=== PATIENT | male | born 1940 | race Caucasian/White ===

== ENCOUNTER 2021-01-09 14:54 | Inpatient (IN) ==
[2021-01-09] MEDS ORDERED: ALBUT/IPRATROP 3MG/0.5MG NEB 3 ML VIAL NEB STA (15:24)
[2021-01-09 16:04] LABS: Basophils # (auto) 0.03 K/uL (0-0.2); Basophils % (auto) 0.3 %; Eosinophils # (auto) 0.15 K/uL (0-0.5); Eosinophils % (auto) 1.7 %; Hemoglobin 15.2 g/dL (14.0-18.0); Immature Granulocytes # (auto) 0.04 K/uL (0.00-0.02); Immature Granulocytes % (auto) 0.5 %; Lymphocytes # (auto) 1.33 K/uL (1.2-3.4); Lymphocytes % (auto) 15.3 %; Mean Corpuscular Hemoglobin 32.4 pg (25-34); Mean Corpuscular Hgb Conc 33.8 g/dL (32-36); Mean Corpuscular Volume 95.9 fL (80-100); Mean Platelet Volume 9.1 fL (7.4-10.4); Monocytes # (auto) 0.49 K/uL (0.11-0.59); Monocytes % (auto) 5.6 %; Neutrophils # (auto) 6.65 K/uL (1.4-6.5); Neutrophils % (auto) 76.6 %; Platelet Count 268 K/uL (130-400); RDW Coefficient of Variation 13.5 % (11.5-14.5); RDW Standard Deviation 47.3 fL (36.4-46.3); Red Blood Count 4.69 M/uL (4.7-6.1); White Blood Count 8.69 K/uL (4.8-10.8)
[2021-01-09] MEDS ORDERED: SODIUM CHLORIDE 0.9% 1000ML 500 ML IV ONE (16:05)
[2021-01-09 16:06] LABS: Base Excess VBG 5.7 mEq/L; HCO3 VBG 33 mmol/L; Oxygen Saturation VBG < 60.0 %; PCO2 VBG 58 mmHg (38-50); PO2 VBG 22 mmHg; pH VBG 7.37 (7.36-7.41)
[2021-01-09] MEDS ORDERED: SODIUM CHLORIDE 0.9% 500 ML IV SCH (16:15)
[2021-01-09 16:22] LABS: Alanine Aminotransferase 24 U/L (12-78); Albumin Level 3.6 gm/dl (3.4-5.0); Aspartate Aminotransferase 19 U/L (15-37); BUN Creatinine Ratio 27.2 (10-20); Bilirubin Direct 0.2 mg/dl (0-0.2); Blood Urea Nitrogen 22 mg/dl (7-18); Calcium 9.6 mg/dl (8.5-10.1); Carbon Dioxide 31 mmol/L (21-32); Chloride 99 mmol/L (98-107); Creatinine Clr Calc Pharmacy 68.4 ml/min; Est GFR (African American) 96.4 ml/min; Est GFR (Non-African American) 83.2 ml/min; Glucose 111 mg/dl (70-99); Sodium 136 mmol/L (136-145)
--- NOTE | 2021-01-09 16:24 | Emergency Department Note ---
History of Present Illness General Chief Complaint: Shortness of Breath/Dyspnea Stated Complaint: SOB Time Seen by Provider: 01/09/21 15:17 History of Present Illness Provider Complaint: shortness of breath and cough Onset (ago): day(s) (2) Severity: severe Consistency/Duration: + constant Relieved By: + oxygen and + bronchodilators Exacerbated By: + coughing Context: no recent illness, no occurred during exertion, no choking/aspiration, no medication noncompliance, no allergen exposure, no recent travel and no CO exposure Known history of: COPD Associated symptoms: + cough, + wheezing and + sputum production; no chest pain, no fever, no orthopnea, no polyuria, no polydipsia, no syncope, no rash and no sense of impending doom Treatment prior to arrival: oxygen, bronchodilator and other (Solu-Medrol 125 mg) Related Data Home oxygen amount: 4 liters Home Medications Medication Instructions Recorded Confirmed Type lisinopril 10 1 tab PO QAM tab 03/31/19 01/09/21 History mg-hydrochlorothiazide 12.5 mg tablet hydrocodone 5 mg-acetaminophen 325 1 tab PO Q8H PRN tab 05/03/19 01/09/21 History mg tablet levothyroxine 125 mcg capsule 125 mcg PO QAM 08/24/19 01/09/21 History budesonide-formoterol HFA 160 2 inh INHALATION BID #1 g 05/22/20 01/09/21 Rx mcg-4.5 mcg/actuation aerosol inhaler albuterol sulfate 2 puffs INHALATION Q6H PRN 01/09/21 01/09/21 History cholecalciferol (vitamin D3) 25 mcg PO QAM 01/09/21 01/09/21 History [Vitamin D3] ipratropium-albuterol 2 puff INHALATION QID 01/09/21 01/09/21 History simvastatin 40 mg PO HS 01/09/21 01/09/21 History tiotropium bromide 2 puff INHALATION DAILY PRN 01/09/21 01/09/21 History Allergies Allergy/AdvReac Type Severity Reaction Status Date / Time amoxicillin [From Augmentin] Allergy Severe Verified 01/09/21 16:22 clavulanic acid Allergy Severe Verified 01/09/21 16:22 [From Augmentin] tetanus toxoid, adsorbed Allergy Intermediate INJECTION Unverified 01/09/21 16:22 SITE SWELLING Past Med/Surg History Medical History (Updated 01/09/21 @ 18:53 by Vinny Landaverde) Carotid arterial disease COPD (chronic obstructive pulmonary disease) Hypercholesteremia Hypertension Hypothyroidism Surgical History History of prostate surgery Status post carotid surgery left CEA Family History Family/Other Diabetes Breast cancer Hypertension Social History Smoking Status: Current every day smoker Tobacco Type: Cigarettes packs per day: 0.5; Hx Alcohol Use: No Hx Substance Use: No Preferred Language: Romansh marital status: Single Current Living Situation: Alone current occupational status: retired Feels Safe at Home: Yes Childhood Exposure to Second-Hand Smoke: Yes Dental Care, Regularly: No Physical Activity Frequency: Does not Exercise Review of Systems A total of 10 systems reviewed and were otherwise negative Physical Exam Vital Signs: Vital Signs - 24 hr 01/09/21 15:00 01/09/21 15:02 01/09/21 15:10 Temperature 36.4 C L Temperature Source Axillary Pulse Rate 104 H 98 H 104 H Pulse Rate [Apical ] Pulse Rate from Sp O2 Sensor Pulse Rhythm Regular Pulse Strength Normal Respiratory Rate 18 24 24 Respiratory Effort / Characteristics Non-Labored Sponta neous Respiratory Depth Shallow Respiratory Patter n Regular Tachypnea Blood Pressure 92/76 L 102/47 L 102/49 L Blood Pressure Kaila n 81 65 66 Blood Pressure Pos ition Lying Pulse Oximetry 94 Oxygen Delivery Me thod Nasal Cannula Oxygen Flow Rate 6 Sepsis Recent Feve r Within 48 Hours No Sepsis New/Unexpla ined Change in Men millicent Status N/A Sepsis Action Take n by Nursing No Action Required 01/09/21 15:31 01/09/21 15:40 01/09/21 15:46 Temperature Temperature Source Pulse Rate 95 H 102 H Pulse Rate [Apical ] 96 H Pulse Rate from Sp O2 Sensor Pulse Rhythm Regular Pulse Strength Respiratory Rate 21 24 16 Respiratory Effort / Characteristics Non-Labored Sponta neous Respiratory Depth Respiratory Patter n Blood Pressure 80/52 L Blood Pressure Kaila n 61 Blood Pressure Pos ition Pulse Oximetry 98 98 Oxygen Delivery Me thod Nasal Cannula Nasal Cannula Oxygen Flow Rate 6 6 Sepsis Recent Feve r Within 48 Hours Sepsis New/Unexpla ined Change in Men millicent Status Sepsis Action Take n by Nursing 01/09/21 16:00 01/09/21 16:01 01/09/21 16:15 Temperature Temperature Source Pulse Rate 100 H 99 H 89 Pulse Rate [Apical ] Pulse Rate from Sp O2 Sensor 82 88 89 Pulse Rhythm Pulse Strength Respiratory Rate 18 22 24 Respiratory Effort / Characteristics Respiratory Depth Respiratory Patter n Blood Pressure 80/46 L 97/73 L Blood Pressure Kaila n 57 81 Blood Pressure Pos ition Pulse Oximetry 94 98 100 Oxygen Delivery Me thod Oxygen Flow Rate Sepsis Recent Feve r Within 48 Hours Sepsis New/Unexpla ined Change in Men millicent Status Sepsis Action Take n by Nursing 01/09/21 16:30 01/09/21 16:48 01/09/21 17:00 Temperature Temperature Source Pulse Rate 99 H 103 H 95 H Pulse Rate [Apical ] Pulse Rate from Sp O2 Sensor 94 H 90 91 H Pulse Rhythm Pulse Strength Respiratory Rate 19 21 24 Respiratory Effort / Characteristics Respiratory Depth Respiratory Patter n Blood Pressure 92/64 L 92/67 L 115/73 Blood Pressure Kaila n 73 75 87 Blood Pressure Pos ition Pulse Oximetry 91 93 100 Oxygen Delivery Me thod Oxygen Flow Rate Sepsis Recent Feve r Within 48 Hours Sepsis New/Unexpla ined Change in Men millicent Status Sepsis Action Take n by Nursing 01/09/21 17:15 01/09/21 17:26 01/09/21 17:28 Temperature Temperature Source Pulse Rate 111 H 110 H Pulse Rate [Apical ] Pulse Rate from Sp O2 Sensor 111 H 108 H Pulse Rhythm Pulse Strength Respiratory Rate 36 H 33 H Respiratory Effort / Characteristics Spontaneous SOB on Exertion Respiratory Depth Respiratory Patter n Tachypnea Blood Pressure 199/115 H 191/93 H Blood Pressure Kaila n 143 125 Blood Pressure Pos ition Pulse Oximetry 98 99 Oxygen Delivery Me thod Nasal Cannula Nasal Cannula Oxygen Flow Rate 4 4 Sepsis Recent Feve r Within 48 Hours Sepsis New/Unexpla ined Change in Men millicent Status Sepsis Action Take n by Nursing 01/09/21 17:31 01/09/21 17:45 01/09/21 18:00 Temperature Temperature Source Pulse Rate 102 H 105 H 101 H Pulse Rate [Apical ] Pulse Rate from Sp O2 Sensor 103 H 97 H 89 Pulse Rhythm Pulse Strength Respiratory Rate 27 H 24 20 Respiratory Effort / Characteristics Respiratory Depth Respiratory Patter n Blood Pressure 189/93 H 153/93 H 169/79 H Blood Pressure Kaila n 125 113 109 Blood Pressure Pos ition Pulse Oximetry 99 99 100 Oxygen Delivery Me thod Nasal Cannula Nasal Cannula Nasal Cannula Oxygen Flow Rate 4 4 4 Sepsis Recent Feve r Within 48 Hours Sepsis New/Unexpla ined Change in Men millicent Status Sepsis Action Take n by Nursing 01/09/21 18:16 01/09/21 18:31 01/09/21 18:45 Temperature Temperature Source Pulse Rate 81 95 H 103 H Pulse Rate [Apical ] Pulse Rate from Sp O2 Sensor 89 79 96 H Pulse Rhythm Pulse Strength Respiratory Rate 22 23 23 Respiratory Effort / Characteristics Respiratory Depth Respiratory Patter n Blood Pressure 131/76 128/73 123/75 Blood Pressure Kaila n 94 91 91 Blood Pressure Pos ition Pulse Oximetry 98 96 83 L Oxygen Delivery Me thod Nasal Cannula Nasal Cannula Oxygen Flow Rate 4 4 Sepsis Recent Feve r Within 48 Hours Sepsis New/Unexpla ined Change in Men millicent Status Sepsis Action Take n by Nursing Physical Exam: Physical Exam HENT: Exam performed. - Head: Normocephalic and atraumatic. - Right Ear: External ear normal. No mastoid tenderness. - Left Ear: External ear normal. No mastoid tenderness. - Mouth/Throat: The oropharynx is clear and moist. No trismus in the jaw. No dental abscesses or uvula swelling. No oropharyngeal exudate or tonsillar abscesses. EYES: Conjunctivae and EOM are normal. Pupils are equal, round, and reactive to light. Right eye exhibits no discharge. Left eye exhibits no discharge. No scleral icterus. NECK: Normal range of motion. Neck supple. No JVD present. No spinous process tenderness present. No carotid bruit present. No rigidity. No tracheal deviation and normal range of motion present. No Brudzinski's sign and no Kernig's sign noted. CV: Normal rate, regular rhythm, normal heart sounds and intact distal pulses. There is no peripheral edema. Palpable radial pulses bue. PULM/CHEST: Diminished breath sounds bilaterally. - Chest Wall: He exhibits no tenderness. ABD: The abdomen is soft. Bowel sounds are normal. He has no distension. No mass is present. There is no tenderness. There is no rebound, no guarding, no Barton's sign and no tenderness at McBurney's point. Rovsig negative. MUSC/SKEL: Normal range of motion. There is no peripheral edema, tenderness or deformity. LYMPH: No cervical adenopathy. NEURO: He is alert and oriented to person, place, and time. He has normal strength. No cranial nerve deficit or sensory deficit. Coordination and gait nor mal. GCS eye subscore is 4. GCS verbal subscore is 5. GCS motor subscore is 6. Cerebellar tests wnl. SKIN: Skin is warm and dry. He is not diaphoretic. PSYCH: He has a normal mood and affect. Behavior is normal. Judgment and thought content normal. Course Course 1517: The patient was evaluated in room A12. A complete history and physical exam was performed Cardiac monitoring: An order was placed for continuous cardiac monitoring. The monitor shows a rate of 100 with sinus rhythm 1615: Patient hypotensive. Will give IV fluids and reassess. Patient states he feels better after DuoNeb treatment. 1720: Vital signs stable status post IV fluid bolus. Patient's breathing is better with DuoNeb treatments. Labs within normal limits and x-ray shows emphysema. Patient will be admitted for COPD exacerbation. [facility] hospitalist Dr. Shah notified. Administered Medications Sodium Chloride (Nss) 500 mls @ 125 mls/hr IV .Q4H JACQUELINE Stop: 02/08/21 16:14 Last Infusion: 01/09/21 17:28 Dose: 0 mls/hr Documented by: [id number] Admin: 01/09/21 16:11 Dose: 125 mls/hr Documented by: [id number] Discontinued Medications Albuterol (Albut/Ipratrop 3mg/0.5mg Neb 3 Ml Vial) 3 ml NEB NOW STA Stop: 01/09/21 15:25 Last Admin: 01/09/21 15:45 Dose: 3 ml Documented by: [id number] Sodium Chloride (Nss 1000ml) 500 mls @ 999 mls/hr IV .Q31M ONE Stop: 01/09/21 16:35 Last Infusion: 01/09/21 17:28 Dose: 0 mls/hr Documented by: [id number] Admin: 01/09/21 16:11 Dose: 999 mls/hr Documented by: [id number] Medical Decision Making Laboratory Data Result diagrams: 01/09/21 15:56 01/09/21 15:56 Lab Results 01/09/21 01/09/21 01/09/21 Range/Units 15:56 15:56 15:56 WBC 8.69 (4.8-10.8) K/uL RBC 4.69 L (4.7-6.1) M/uL Hgb 15.2 (14.0-18.0) g/dL Hct 45.0 (42-52) % MCV 95.9 (80-100) fL MCH 32.4 (25-34) pg MCHC 33.8 (32-36) g/dL RDW Std Deviation 47.3 H (36.4-46.3) fL RDW Coeff of Scott 13.5 (11.5-14.5) % Plt Count 268 (130-400) K/uL MPV 9.1 (7.4-10.4) fL Immature Gran % (Auto) 0.5 % Neut % (Auto) 76.6 % Lymph % (Auto) 15.3 % Burnet % (Auto) 5.6 % Eos % (Auto) 1.7 % Baso % (Auto) 0.3 % Neut # (Auto) 6.65 H (1.4-6.5) K/uL Lymph # (Auto) 1.33 (1.2-3.4) K/uL Burnet # (Auto) 0.49 (0.11-0.59) K/uL Eos # (Auto) 0.15 (0-0.5) K/uL Baso # (Auto) 0.03 (0-0.2) K/uL Immature Gran # (Auto) 0.04 H (0.00-0.02) K/uL PT 9.7 (9.0-12.0) Seconds INR 1.0 (0.9-1.1) APTT 25.4 (21.0-31.0) Seconds PTT Ratio 1.0 VBG pH (7.36-7.41) VBG pCO2 (38-50) mmHg VBG pO2 mmHg VBG HCO3 mmol/L VBG O2 Saturation % VBG Base Excess mEq/L Barometric Pressure mm/Hg Sodium 136 (136-145) mmol/L Potassium 4.0 (3.5-5.1) mmol/L Chloride 99 (98-107) mmol/L Carbon Dioxide 31 (21-32) mmol/L Anion Gap 6.0 (3-11) BUN 22 H (7-18) mg/dl Creatinine 0.80 (0.6-1.4) mg/dl Est Cr Clr Drug Dosing 68.4 ml/min Est GFR ( Amer) 96.4 ml/min Est GFR (Non-Af Amer) 83.2 ml/min BUN/Creatinine Ratio 27.2 H (10-20) Glucose 111 H (70-99) mg/dl Calcium 9.6 (8.5-10.1) mg/dl Total Bilirubin 0.5 (0.2-1) mg/dl Direct Bilirubin 0.2 (0-0.2) mg/dl AST 19 (15-37) U/L ALT 24 (12-78) U/L Alkaline Phosphatase 80 (45-117) U/L Troponin I < 0.015 (0-0.045) ng/ml NT-Pro-B Natriuret Pep 41 (0-1800) pg/ml Total Protein 7.0 (6.4-8.2) gm/dl Albumin 3.6 (3.4-5.0) gm/dl Lipase (73-393) U/L COVID-19 Eval Order SARS-CoV-2 (PCR) (Negative) 01/09/21 01/09/21 01/09/21 Range/Units 15:56 15:56 16:15 WBC (4.8-10.8) K/uL RBC (4.7-6.1) M/uL Hgb (14.0-18.0) g/dL Hct (42-52) % MCV (80-100) fL MCH (25-34) pg MCHC (32-36) g/dL RDW Std Deviation (36.4-46.3) fL RDW Coeff of Scott (11.5-14.5) % Plt Count (130-400) K/uL MPV (7.4-10.4) fL Immature Gran % (Auto) % Neut % (Auto) % Lymph % (Auto) % Burnet % (Auto) % Eos % (Auto) % Baso % (Auto) % Neut # (Auto) (1.4-6.5) K/uL Lymph # (Auto) (1.2-3.4) K/uL Burnet # (Auto) (0.11-0.59) K/uL Eos # (Auto) (0-0.5) K/uL Baso # (Auto) (0-0.2) K/uL Immature Gran # (Auto) (0.00-0.02) K/uL PT (9.0-12.0) Seconds INR (0.9-1.1) APTT (21.0-31.0) Seconds PTT Ratio VBG pH 7.37 (7.36-7.41) VBG pCO2 58 H (38-50) mmHg VBG pO2 22 mmHg VBG HCO3 33 mmol/L VBG O2 Saturation < 60.0 % VBG Base Excess 5.7 mEq/L Barometric Pressure 730.7 mm/Hg Sodium (136-145) mmol/L Potassium (3.5-5.1) mmol/L Chloride (98-107) mmol/L Carbon Dioxide (21-32) mmol/L Anion Gap (3-11) BUN (7-18) mg/dl Creatinine (0.6-1.4) mg/dl Est Cr Clr Drug Dosing ml/min Est GFR ( Amer) ml/min Est GFR (Non-Af Amer) ml/min BUN/Creatinine Ratio (10-20) Glucose (70-99) mg/dl Calcium (8.5-10.1) mg/dl Total Bilirubin (0.2-1) mg/dl Direct Bilirubin (0-0.2) mg/dl AST (15-37) U/L ALT (12-78) U/L Alkaline Phosphatase (45-117) U/L Troponin I (0-0.045) ng/ml NT-Pro-B Natriuret Pep (0-1800) pg/ml Total Protein (6.4-8.2) gm/dl Albumin (3.4-5.0) gm/dl Lipase 62 L (73-393) U/L COVID-19 Eval Order Covid19 at [facility] SARS-CoV-2 (PCR) (Negative) 01/09/21 Range/Units 16:15 WBC (4.8-10.8) K/uL RBC (4.7-6.1) M/uL Hgb (14.0-18.0) g/dL Hct (42-52) % MCV (80-100) fL MCH (25-34) pg MCHC (32-36) g/dL RDW Std Deviation (36.4-46.3) fL RDW Coeff of Scott (11.5-14.5) % Plt Count (130-400) K/uL MPV (7.4-10.4) fL Immature Gran % (Auto) % Neut % (Auto) % Lymph % (Auto) % Burnet % (Auto) % Eos % (Auto) % Baso % (Auto) % Neut # (Auto) (1.4-6.5) K/uL Lymph # (Auto) (1.2-3.4) K/uL Burnet # (Auto) (0.11-0.59) K/uL Eos # (Auto) (0-0.5) K/uL Baso # (Auto) (0-0.2) K/uL Immature Gran # (Auto) (0.00-0.02) K/uL PT (9.0-12.0) Seconds INR (0.9-1.1) APTT (21.0-31.0) Seconds PTT Ratio VBG pH (7.36-7.41) VBG pCO2 (38-50) mmHg VBG pO2 mmHg VBG HCO3 mmol/L VBG O2 Saturation % VBG Base Excess mEq/L Barometric Pressure mm/Hg Sodium (136-145) mmol/L Potassium (3.5-5.1) mmol/L Chloride (98-107) mmol/L Carbon Dioxide (21-32) mmol/L Anion Gap (3-11) BUN (7-18) mg/dl Creatinine (0.6-1.4) mg/dl Est Cr Clr Drug Dosing ml/min Est GFR ( Amer) ml/min Est GFR (Non-Af Amer) ml/min BUN/Creatinine Ratio (10-20) Glucose (70-99) mg/dl Calcium (8.5-10.1) mg/dl Total Bilirubin (0.2-1) mg/dl Direct Bilirubin (0-0.2) mg/dl AST (15-37) U/L ALT (12-78) U/L Alkaline Phosphatase (45-117) U/L Troponin I (0-0.045) ng/ml NT-Pro-B Natriuret Pep (0-1800) pg/ml Total Protein (6.4-8.2) gm/dl Albumin (3.4-5.0) gm/dl Lipase (73-393) U/L COVID-19 Eval Order SARS-CoV-2 (PCR) NEGATIVE (Negative) Imaging Data Radiologist's Impression: Chest X-Ray 01/09/21 15:24 SINGLE VIEW CHEST CLINICAL HISTORY: Dyspnea. FINDINGS: 2 AP, portable, upright chest radiographs are obtained. No prior studies are available for comparison at the time of dictation. The examination is degraded by portable technique and patient rotation. The heart is top normal for projection noting advanced atherosclerotic calcification of the thoracic aorta. Advanced emphysema and chronic interstitial thickening is similar to previous. Foci of parenchymal scarring are scattered throughout both lungs. No airspace consolidation or large pleural effusion is identified. No pneumothorax is seen. The skeletal structures are osteopenic. The bony thorax is grossly intact. There is advanced atherosclerotic calcification of the right carotid bulb. IMPRESSION: Advanced emphysematous change with no acute cardiopulmonary abnormality. ACT 112: Negative or not required by law. Electronically signed by: Carlin Zapata M.D. 01/09/2021 4:42 PM ECG Data Interpretation: Sinus rhythm with a rate of 98. [place] 204 QRS [address] elevation or ST depression. First-degree AV block present. Peaked T waves in lead V3 V4. [facility] Narrative 1517: The patient was evaluated in room A12. A complete history and physical exam was performed Cardiac monitoring: An order was placed for continuous cardiac monitoring. The monitor shows a rate of 100 with sinus rhythm 1615: Patient hypotensive. Will give IV fluids and reassess. Patient states he feels better after DuoNeb treatment. 1720: Vital signs stable status post IV fluid bolus. Patient's breathing is better with DuoNeb treatments. Labs within normal limits and x-ray shows emphysema. Patient will be admitted for COPD exacerbation. [facility] hospitalist Dr. Shah notified. Impression & Plan Acute exacerbation of chronic obstructive airways disease Discharge Plan Visit Data Chief Complaint: Shortness of Breath/Dyspnea Stated Complaint: SOB ED Provider: Vinny Landaverde Discharge Problem: Acute exacerbation of chronic obstructive airways disease Patient Disposition: Being Evaluated by Hospitalist Forms Stand Alone Forms: My [facility] Prescriptions Prescriptions: No Action budesonide-formoterol 160-4.5 mcg/actuation HFA aerosol inhaler 2 inh inhalation BID Qty: 1 RF: 5 lisinopril-hydrochlorothiazide 10-12.5 mg tablet 1 tab PO QAM RF: 0 hydrocodone-acetaminophen 5-325 mg tablet 1 tab PO Q8H PRN (Reason: pain) RF: 0 levothyroxine 125 mcg capsule 125 mcg PO QAM RF: 0 simvastatin 80 mg Tablet 40 mg PO HS RF: 0 cholecalciferol (vitamin D3) [Vitamin D3] 25 mcg (1,000 unit) Tablet 25 mcg PO QAM RF: 0 tiotropium bromide 2.5 mcg/actuation Mist 2 puff INHALATION DAILY PRN (Reason: COPD) RF: 0 albuterol sulfate 90 mcg/actuation HFA aerosol inhaler 2 puffs inhalation Q6H PRN (Reason: Shortness Of Breath Or Wheezing) RF: 0 ipratropium-albuterol 20-100 mcg/actuation mist 2 puff inhalation QID RF: 0 Referrals Referrals: Joseph Carrillo III, MD [Primary Care Provider] -
[2021-01-09 16:27] LABS: Alkaline Phosphatase 80 U/L (45-117); Bilirubin,Total 0.5 mg/dl (0.2-1); NT Pro B Type Natriuretic Pept 41 pg/ml (0-1800); Troponin I < 0.015 ng/ml (0-0.045)
[2021-01-09 16:40] LABS: Partial Thromboplastin Time 25.4 Seconds (21.0-31.0); Prothrombin Time 9.7 Seconds (9.0-12.0)
--- NOTE | 2021-01-09 16:43 | XRay Report ---
SINGLE VIEW CHEST CLINICAL HISTORY: Dyspnea. FINDINGS: 2 AP, portable, upright chest radiographs are obtained. No prior studies are available for comparison at the time of dictation. The examination is degraded by portable technique and patient ro tation. The heart is top normal for projection noting advanced atherosclerotic calcification of the thoracic aorta. Advanced emphysema and chronic interstitial thickening is similar to previous. Foci o f parenchymal scarring are scattered throughout both lungs. No airspace consolidation or large pleura l effusion is identified. No pneumothorax is seen. The skeletal structures are osteopenic. The bony t horax is grossly intact. There is advanced atherosclerotic calcification of the right carotid bulb. IMPRESSION: Advanced emphysematous change with no acute cardiopulmonary abnormality. ACT 112: Negative or not required by law. Electronically signed by: Carlin Zapata M.D. 01/09/2021 4:42 PM
[2021-01-09] MEDS ORDERED: ONDANSETRON INJ 2 MG/ML 2 ML VIAL IV PRN (17:48)
[2021-01-09] MEDS ORDERED: POLYETHYLENE (MIRALAX) 17 GM PACK PO PRN (17:48)
--- NOTE | 2021-01-09 18:35 | History & Physical Report ---
Date of Service January 09, 2021 Assessment & Plan (1) COPD (chronic obstructive pulmonary disease): Severe obstructive from PFT 2019 - Continue his Combivent- inh will schedule for 24 hours - Combivent nebs prn q4h in between - Continue Spiriva - Continue Symbicort - Oral prednisone 40mg qd wean down - with his minimal exacerbating symptoms don't see any role of changing his current inhalers or adding roflumilast Patient with very few exacerbations or admission- Anxiety from his dyspnea may be playing an active role with his process. Not conversationally dyspneic, no change in oxygen requirements, no change in sputum. His Co2 on VBG was 58. No acute changes on his CXR. Could consider adding low dose clonazepam for this if not too sedating (2) Hypothyroidism: Continue synthroid - TSH in morning (3) Hypercholesteremia: Care at [place] for his HTN and HLD - Continue statin (4) Hypertension: Continue lisinopril/HCTZ combo - well controlled (5) Cigarette nicotine dependence: Continue to smoke with home oxygen and severe COPD - Nicotene patch ordered - Smoking cessation education will be provided again - Patient does want to go home to smoke History of Present Illness Primary Care Provider: Joseph Carrillo MD 80 YOM continued smoker 1/2 ppd, with severe COPD, HTN, HLD, Hypothyroidism, received his COVID vaccines x2. Patient was at the [place] for a follow up appointment, where he became extremely dyspneic and was transferred to [facility]. In the EMD, the patient received 1Liter of 0.9% saline and albuterol nebulizer, with CXR. Hospitalist service was notified for admission. Upon reviewing the patients information, the patient is has severe COPD to the point that he has been having difficulty making his PCP appointments and pulmonary appointments, as most of these have been converted to virtual appointments to continue to help him with his disease. He gets dyspneic with any activity that he performs and he is on 3-4 L chronic oxygen at home, with sedentary lifestyle noted. Patient is not conversationally dyspneic however when he stops talking he starts to gasp to catch his breath and when using pursed lip breathing he calms his respirations down. Patient will be started on prednisone 40mg Daily starting today and continue his inhalers and follow his symptom control. Allergies Allergy/AdvReac Type Severity Reaction Status Date / Time amoxicillin [From Augmentin] Allergy Severe Verified 01/09/21 16:22 clavulanic acid Allergy Severe Verified 01/09/21 16:22 [From Augmentin] tetanus toxoid, adsorbed Allergy Intermediate INJECTION Unverified 01/09/21 16:22 SITE SWELLING Home Medications Medication Instructions Recorded Confirmed Type lisinopril 10 1 tab PO QAM tab 03/31/19 01/09/21 History mg-hydrochlorothiazide 12.5 mg tablet hydrocodone 5 mg-acetaminophen 325 1 tab PO Q8H PRN tab 05/03/19 01/09/21 Hi story mg tablet levothyroxine 125 mcg capsule 125 mcg PO QAM 08/24/19 01/09/21 History budesonide-formoterol HFA 160 2 inh INHALATION BID #1 g 05/22/20 01/09/21 Rx mcg-4.5 mcg/actuation aerosol inhaler albuterol sulfate 2 puffs INHALATION Q6H PRN 01/09/21 01/09/21 History cholecalciferol (vitamin D3) 25 mcg PO QAM 01/09/21 01/09/21 History [Vitamin D3] ipratropium-albuterol 2 puff INHALATION QID 01/09/21 01/09/21 History simvastatin 40 mg PO HS 01/09/21 01/09/21 History tiotropium bromide 2 puff INHALATION DAILY PRN 01/09/21 01/09/21 History Past Med/Surg History Medical History (Updated 01/09/21 @ 18:53 by Vinny Landaverde) Carotid arterial disease COPD (chronic obstructive pulmonary disease) Hypercholesteremia Hypertension Hypothyroidism Surgical History History of prostate surgery Status post carotid surgery left CEA Family History Family/Other Diabetes Breast cancer Hypertension Social History Smoking Status: Current every day smoker Tobacco Type: Cigarettes packs per day: 0.5; Cigarettes Per Day: 10; Second Hand Exposure: Yes; Do You Dip or Chew Tobacco: No; Hx Alcohol Use: No Hx Substance Use: No Preferred Language: Lebanese Communication Ability: Effective Image Scientist Required: No Beliefs That Will Affect Care: None marital status: Single Current Living Situation: Alone current occupational status: retired Other Information That Helps Us Care for You: No Feels Safe at Home: Yes Safety Concerns: Feels Safe At This Time Childhood Exposure to Second-Hand Smoke: Yes Dental Care, Regularly: No Physical Activity Frequency: Does not Exercise Assistive Devices: Oxygen - Continuous Assistive Devices Comment: left hearing aids at home Review of Systems Review of Systems: REVIEW OF SYSTEMS: Constitutional: No fever, sweats or chills Eyes: No diplopia, no worsening or blurred vision ENT: normal hearing, no trouble swallowing Respiratory: (+) dyspnea at rest or on exertion, cough, clear thick whitish brown sputum, Cardiovascular: No chest pain, tightness or palpitations Abdomen: No pain, nausea, vomiting, diarrhea or constipation Musculoskeletal: (+) knee joint pain, NO calf pain, swelling Neurologic: No weakness, numbness/tingling, or balance problems Psychiatric: No anxiety or depression Skin: No rash or itch Physical Exam Physical Exam: PHYSICAL EXAM: General: awake, alert, anxious Head: Normocephalic, atraumatic ENT: PERRL, EOMI, no pharyngeal exudate, mucous membranes moist Neuro: AAO x 3, speech clear and appropriate, strength intact bilaterally 5/5, sensation intact and equal all extremities and dermatomes, no pronator drift Chest: equal rise and fall of the chest, with accessory muscle use, no heaves or thrills, expiratory wheeze bilaterally diminished in the bases, on 3lNC Cardiac: Regular rate and rhythm, telemetry reviewed- sinus tach, skin warm dry, cap refill <3 seconds, peripheral pulses +2 no JVD, no murmur, no edema GI: NABS x 4 quadrants, soft, nontender to palpation, no rebound, guarding or tenderness : Spontaneously voiding, no pain, no CVA tenderness, Extremities: Normal inspection, no peripheral edema or erythema, calfs nontender to palpation Psych: Normal mood and affect Skin: no rash or erythema Results & Data Results & Data ([facility]) Vital Signs (Past 12 Hours) Vital Signs Temp Pulse Pulse Resp BP Pulse Ox 01/09/21 17:45 105 H 24 153/93 H 99 01/09/21 17:31 102 H 27 H 189/93 H 99 01/09/21 17:28 110 H 33 H 191/93 H 99 01/09/21 17:26 111 H 36 H 199/115 H 98 01/09/21 17:00 95 H 24 115/73 100 01/09/21 16:48 103 H 21 92/67 L 93 01/09/21 16:30 99 H 19 92/64 L 91 01/09/21 16:15 89 24 97/73 L 100 01/09/21 16:01 99 H 22 80/46 L 98 01/09/21 16:00 100 H 18 94 01/09/21 15:46 96 H 16 98 01/09/21 15:40 102 H 24 98 01/09/21 15:31 95 H 21 80/52 L 01/09/21 15:10 36.4 C L 104 H 24 102/49 L 94 01/09/21 15:02 98 H 24 102/47 L 01/09/21 15:00 104 H 18 92/76 L Laboratory Results Abnormal lab results 01/09/21 01/09/21 01/09/21 Range/Units 15:56 15:56 15:56 RBC 4.69 L (4.7-6.1) M/uL RDW Std Deviation 47.3 H (36.4-46.3) fL Neut # (Auto) 6.65 H (1.4-6.5) K/uL Immature Gran # (Auto) 0.04 H (0.00-0.02) K/uL VBG pCO2 (38-50) mmHg BUN 22 H (7-18) mg/dl BUN/Creatinine Ratio 27.2 H (10-20) Glucose 111 H (70-99) mg/dl Lipase 62 L (73-393) U/L 01/09/21 Range/Units 15:56 RBC (4.7-6.1) M/uL RDW Std Deviation (36.4-46.3) fL Neut # (Auto) (1.4-6.5) K/uL Immature Gran # (Auto) (0.00-0.02) K/uL VBG pCO2 58 H (38-50) mmHg BUN (7-18) mg/dl BUN/Creatinine Ratio (10-20) Glucose (70-99) mg/dl Lipase (73-393) U/L Diagnostic Findings Chest X-Ray 01/09/21 15:24 SINGLE VIEW CHEST CLINICAL HISTORY: Dyspnea. FINDINGS: 2 AP, portable, upright chest radiographs are obtained. No prior studies are available for comparison at the time of dictation. The examination is degraded by portable technique and patient rotation. The heart is top normal for projection noting advanced atherosclerotic calcification of the thoracic aorta. Advanced emphysema and chronic interstitial thickening is similar to previous. Foci of parenchymal scarring are scattered throughout both lungs. No airspace consolidation or large pleural effusion is identified. No pneumothorax is seen. The skeletal structures are osteopenic. The bony thorax is grossly intact. There is advanced atherosclerotic calcification of the right carotid bulb. IMPRESSION: Advanced emphysematous change with no acute cardiopulmonary abnormality. Electronically signed by: Carlin Zapata M.D. 01/09/2021 4:42 PM Medications Administered Sodium Chloride (Nss) 500 mls @ 125 mls/hr IV .Q4H JACQUELINE Stop: 02/08/21 16:14 Last Infusion: 01/09/21 17:28 Dose: 0 mls/hr Documented by: [id number] Admin: 01/09/21 16:11 Dose: 125 mls/hr Documented by: [id number] Discontinued Medications Albuterol (Albut/Ipratrop 3mg/0.5mg Neb 3 Ml Vial) 3 ml NEB NOW STA Stop: 01/09/21 15:25 Last Admin: 01/09/21 15:45 Dose: 3 ml Documented by: [id number] Sodium Chloride (Nss 1000ml) 500 mls @ 999 mls/hr IV .Q31M ONE Stop: 01/09/21 16:35 Last Infusion: 01/09/21 17:28 Dose: 0 mls/hr Documented by: [id number] Admin: 01/09/21 16:11 Dose: 999 mls/hr Documented by: [id number] ECG Additional Comments: Sinus rhythm with marked sinus arrhythmia 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 rate has increased BY 37 BPM Questionable change in initial forces of Anterior leads Code Status & VTE Plan Code Status CODE: Full VTE: SCD's, Heparin 5000 subq TID VTE Prophylaxis Plan VTE Prophylaxis will be ordered: Yes Supervising Physician Co-Signing Physician Notes Attending addendum: I have physically seen this patient, have supervised the VINI's activities, and agree with the H&P unless as otherwise noted. Assessment and Plan: COPD exacerbation- Duonebs every 4 hours while awake and every 2 hours when necessary. Continue Spiriva, Symbicort Hold prednisone. IV Solu-Medrol 40 mg every 8 hours overnight Nasal cannula oxygen, target pulse ox 92% Hypothyroidism- Continue current dosing of Synthroid, recheck TSH in a.m. Hypertension- Continue lisinopril/HCTZ Hypercholesterolemia- Continue simvastatin 40 mg at bedtime Remaining orders and notations as noted PG Care Time/CCT Total # of Minutes Spent Total Time Spent with Patient: Total time spent is greater than 50% in coordination of care (as documented) at patient's floor/unit and/or counseling patient: Coding Level of Care Code 00505 Initial Inpt Care Lvl 3 Diagnoses COPD (chronic obstructive pulmonary disease) J43.8 COPD type: emphysema Emphysema type: other Hypothyroidism E03.9 Hypothyroidism type: unspecified Hypercholesteremia E78.00 Hypertension I10 Hypertension type: essential hypertension Cigarette nicotine dependence F17.219 Substance use status: unspecified nicotine-induced disorder (1) Hypothyroidism Hypothyroidism type: unspecified Qualified Code(s): E03.9 - Hypothyroidism, unspecified (2) Cigarette nicotine dependence Substance use status: unspecified nicotine-induced disorder Qualified Code(s): F17.219 - Nicotine dependence, cigarettes, with unspecified nicotine- induced disorders (3) COPD (chronic obstructive pulmonary disease) COPD type: emphysema Emphysema type: other Qualified Code(s): J43.8 - Other emphysema (4) Hypertension Hypertension type: essential hypertension Qualified Code(s): I10 - Essential (primary) hypertension
[2021-01-09] MEDS ORDERED: ALBUTEROL HFA 8 GM INHALER INH PRN (19:51)
[2021-01-09] MEDS ORDERED: ALBUT/IPRATROP 3MG/0.5MG NEB 3 ML VIAL NEB PRN (19:51)
[2021-01-09] MEDS: Ipratropium HFA Inhaler (Combivent Respimat P&T Subs) INH SCH (20:35)
[2021-01-09] MEDS: Albuterol HFA 8 GM Inhaler (Combivent Respimat P&T Subs) INH SCH (20:36)
[2021-01-09] MEDS ORDERED: IPRATROPIUM BROMIDE/ALBUTEROL respimat INH INH SCH (21:00)
[2021-01-09] MEDS: predniSONE 20 MG TAB PO SCH (21:18)
[2021-01-09] MEDS: ENOXAPARIN INJ 40 MG/0.4 ML SYR SQ SCH (21:18)
[2021-01-09] MEDS: SIMVASTATIN 40 MG TAB PO SCH (21:19)
[2021-01-09] MEDS: NICOTINE 14 MG/24 HR PATCH TD SCH (21:20)
--- NOTE | 2021-01-09 21:21 | XRay Report ---
XR chest 1V portable HISTORY: Dyspnea. COMPARISON: Chest 01/09/2021. FINDINGS: The lungs are hyperexpanded with severe emphysematous changes. No pneumothorax. No pleural effusion is. The heart is normal in size. No new focal lung consolidations to suggest a pneumonia. Th ere is mild residual thickening which is likely chronic. No evidence for pulmonary edema. Degenerativ e changes again noted within the bilateral shoulders. IMPRESSION: 1. Severe emphysema, unchanged. 2. No new focal lung consolidations to suggest pneumonia. ACT 112: Negative or not required by law. Electronically signed by: Joel Guevara M.D. 01/09/2021 9:20 PM
[2021-01-09 21:38] LABS: Influenza A virus by PCR Negative (Negative); Influenza B virus by PCR Negative (Negative)
[2021-01-10] MEDS ORDERED: LEVOTHYROXINE SODIUM 125 MCG TABLET PO SCH (06:30)
[2021-01-10 07:10] LABS: Hematocrit (blood only) 41.8 % (42-52); Hemoglobin 14.1 g/dL (14.0-18.0); Immature Granulocytes # (auto) 0.02 K/uL (0.00-0.02); Immature Granulocytes % (auto) 0.3 %; Lymphocytes # (auto) 0.74 K/uL (1.2-3.4); Lymphocytes % (auto) 12.6 %; Mean Corpuscular Hemoglobin 32.3 pg (25-34); Mean Corpuscular Hgb Conc 33.7 g/dL (32-36); Mean Corpuscular Volume 95.7 fL (80-100); Mean Platelet Volume 8.8 fL (7.4-10.4); Monocytes # (auto) 0.13 K/uL (0.11-0.59); Monocytes % (auto) 2.2 %; Neutrophils # (auto) 4.96 K/uL (1.4-6.5); Neutrophils % (auto) 84.9 %; Platelet Count 249 K/uL (130-400); RDW Coefficient of Variation 13.4 % (11.5-14.5); RDW Standard Deviation 46.5 fL (36.4-46.3); Red Blood Count 4.37 M/uL (4.7-6.1); White Blood Count 5.85 K/uL (4.8-10.8)
[2021-01-10] MEDS: Albuterol HFA 8 GM Inhaler (Combivent Respimat P&T Subs) INH SCH (07:29)
[2021-01-10] MEDS: Ipratropium HFA Inhaler (Combivent Respimat P&T Subs) INH SCH (07:29)
[2021-01-10 07:45] LABS: BUN Creatinine Ratio 36.1 (10-20); Calcium 8.9 mg/dl (8.5-10.1); Creatinine Clr Calc Pharmacy 69.7 ml/min; Est GFR (African American) 99.6 ml/min; Est GFR (Non-African American) 85.9 ml/min; Magnesium 2.4 mg/dl (1.8-2.4); Potassium 4.3 mmol/L (3.5-5.1)
--- NOTE | 2021-01-10 07:50 | Electrocardiogram Report ---
Test Reason : Blood Pressure : / mmHG Vent. 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 rate has increased BY 37 BPM No significant change Confirmed by Dereck Lee ([id number]) on 01/10/2021 7:49:53 AM Referred By: Confirmed By:Dereck Lee
[2021-01-10 07:55] LABS: Thyroid Stimulating Hormone 0.117 uIu/ml (0.300-4.500)
[2021-01-10] MEDS: FLUTICASONE/VILANTEROL 200/25MCG 14 PUFFS/INHALER INH SCH (08:05)
[2021-01-10] MEDS: CHOLECALCIFEROL 1,000 UNITS 25 MCG TAB PO SCH (08:05)
[2021-01-10] MEDS: LISINOPRIL/HCTZ 10/12.5MG TAB PO SCH (08:05)
[2021-01-10] MEDS: predniSONE 20 MG TAB PO SCH (08:06)
[2021-01-10] MEDS: NICOTINE 14 MG/24 HR PATCH TD SCH (08:06)
[2021-01-10] MEDS ORDERED: AZITHROMYCIN 250 MG TAB PO ONE (08:30)
[2021-01-10] MEDS: ALBUTEROL 0.083% NEBU SOLN 3 ML VIAL NEB SCH ×3 (08:49→19:14)
[2021-01-10] MEDS ORDERED: UMECLIDINIUM BROMIDE 62.5MCG/BLISTER 7 PUFFS/INHALER INH PRN (09:00)
[2021-01-10] MEDS ORDERED: UMECLIDINIUM BROMIDE 62.5MCG/BLISTER 7 PUFFS/INHALER INH SCH (09:00)
[2021-01-10] MEDS: UMECLIDINIUM BROMIDE 62.5MCG/BLISTER 7 PUFFS/INHALER INH SCH (09:05)
--- NOTE | 2021-01-10 13:25 | Billing Data ---
Date of Service January 10, 2021 Coding Level of Care Code 13391 Initial Inpt Care Lvl 3
--- NOTE | 2021-01-10 16:48 | Hospitalist Progress Note ---
Date of Service January 10, 2021 Assessment & Plan (1) COPD (chronic obstructive pulmonary disease): With acute COPD exacerbation Presented with tachypenea and respiratory distress Severe obstructive from PFT 2019 Now on home O2 requirement of 4LNC, no further tachypnea May be some anxiety component - Continue Spiriva - Continue Symbicort - Oral prednisone 40mg qd wean down - with his minimal exacerbating symptoms don't see any role of changing his current inhalers or adding roflumilast -make albuterol neb q6 standing Patient with very few exacerbations or admission- Anxiety from his dyspnea may be playing an active role with his process. Not conversationally dyspneic, no change in oxygen requirements, no change in sputum. His Co2 on VBG was 58. No acute changes on his CXR. Could consider adding low dose clonazepam for this if not too sedating -add on azithromycin x 5 day course for COPD exacerbation -still smoking and no desire to quit (2) Hypothyroidism: TSH low at 0.117 -decrease dose to 112 mcg -follow TSH in 6 weeks as outpt (3) Hypercholesteremia: Care at [place] for his HTN and HLD - Continue statin (4) Hypertension: Continue lisinopril/HCTZ combo - well controlled (5) Cigarette nicotine dependence: Continue to smoke with home oxygen and severe COPD - Nicotene patch ordered - Smoking cessation education will be provided again - Patient does want to go home to smoke (6) Carotid arterial disease: continue statin is not on ASA that I can see-will find out why (7) Chronic respiratory failure with hypoxia: on home O2 3-4L continue such here (8) DVT prophylaxis: Lovenox SQ Dispo-continued stay but can likely dc to home tomorrow PT/OT consults placed as pt quite unsteady on feet, however pt reports he absolutely will not go to a rehab facility Admission and Anticipated Discharge Date Admission Date: January 09, 2021 Subjective Pt feels he is back to his baseline with his breathing. He is eating and drinking. RN reports pt almost fell over with standing up today but both pt and his family at bedside don't seem worried about i t. He says he normally walks around his house and does dishes, but since he's been laying in a bed all day, he's weaker than usual. No other concerns he has. Tele with NSR, rates 70s-80s, PACs He is on his usual 4LNC Review of Systems Review of Systems: All systems reviewed & are unremarkable except as noted in HPI & below Physical Exam Constitutional: + thin; no acute distress Eyes: + anicteric sclerae Neck: trachea midline, no thyromegaly Respiratory: normal respiratory effort Auscultation: + diminished lung sounds (throughout); no crackles and no wheezes Cardiovascular: RRR, no murmur, no edema Chest (Breasts): Chest: normal inspection of chest Gastrointestinal (Abdomen): normal bowel sounds, soft, nontender, no hepatosplenomegaly Musculoskeletal: Extremities: extremities normal to inspection; no cyanosis and no clubbing Skin: no rashes, warm and dry Neurologic: moves all extremities and awake; no focal motor deficits Psychiatric: A+Ox3, euthymic affect Lymphatic: no lymphedema Results & Data Results & Data ([facility]) Vital Signs (Past 12 Hours) Vital Signs Temp Pulse Resp BP Pulse Ox 01/10/21 14:56 36.6 C 76 18 145/67 H 98 01/10/21 13:30 76 20 98 01/10/21 11:14 36.7 C 74 20 142/59 H 99 01/10/21 07:48 36.5 C 86 21 170/69 H 97 01/10/21 07:29 86 18 98 Laboratory Results 01/10/21 01/10/21 01/09/21 Range/Units 06:57 06:57 Unknown WBC 5.85 (4.8-10.8) K/uL RBC 4.37 L (4.7-6.1) M/uL Hgb 14.1 (14.0-18.0) g/dL Hct 41.8 L (42-52) % MCV 95.7 (80-100) fL MCH 32.3 (25-34) pg MCHC 33.7 (32-36) g/dL RDW Std Deviation 46.5 H (36.4-46.3) fL RDW Coeff of Scott 13.4 (11.5-14.5) % Plt Count 249 (130-400) K/uL MPV 8.8 (7.4-10.4) fL Immature Gran % (Auto) 0.3 % Neut % (Auto) 84.9 % Lymph % (Auto) 12.6 % [place] % (Auto) 2.2 % Eos % (Auto) 0.0 % Baso % (Auto) 0.0 % Neut # (Auto) 4.96 (1.4-6.5) K/uL Lymph # (Auto) 0.74 L (1.2-3.4) K/uL [place] # (Auto) 0.13 (0.11-0.59) K/uL Eos # (Auto) 0.00 (0-0.5) K/uL Baso # (Auto) 0.00 (0-0.2) K/uL Immature Gran # (Auto) 0.02 (0.00-0.02) K/uL Sodium 137 (136-145) mmol/L Potassium 4.3 (3.5-5.1) mmol/L Chloride 102 (98-107) mmol/L Carbon Dioxide 29 (21-32) mmol/L Anion Gap 6.0 (3-11) BUN 27 H (7-18) mg/dl Creatinine 0.74 (0.6-1.4) mg/dl Est Cr Clr Drug Dosing 69.7 ml/min Est GFR ( Amer) 99.6 ml/min Est GFR (Non-Af Amer) 85.9 ml/min BUN/Creatinine Ratio 36.1 H (10-20) Glucose 130 H (70-99) mg/dl Calcium 8.9 (8.5-10.1) mg/dl Magnesium 2.4 (1.8-2.4) mg/dl TSH 0.117 L (0.300-4.500) uIu/ml SARS-CoV-2 (PCR) (Negative) Influ A Molecular Assay Negative (Negative) Influ B Molecular Assay Negative (Negative) 01/09/21 Range/Units 16:15 WBC (4.8-10.8) K/uL RBC (4.7-6.1) M/uL Hgb (14.0-18.0) g/dL Hct (42-52) % MCV (80-100) fL MCH (25-34) pg MCHC (32-36) g/dL RDW Std Deviation (36.4-46.3) fL RDW Coeff of Scott (11.5-14.5) % Plt Count (130-400) K/uL MPV (7.4-10.4) fL Immature Gran % (Auto) % Neut % (Auto) % Lymph % (Auto) % [place] % (Auto) % Eos % (Auto) % Baso % (Auto) % Neut # (Auto) (1.4-6.5) K/uL Lymph # (Auto) (1.2-3.4) K/uL [place] # (Auto) (0.11-0.59) K/uL Eos # (Auto) (0-0.5) K/uL Baso # (Auto) (0-0.2) K/uL Immature Gran # (Auto) (0.00-0.02) K/uL Sodium (136-145) mmol/L Potassium (3.5-5.1) mmol/L Chloride (98-107) mmol/L Carbon Dioxide (21-32) mmol/L Anion Gap (3-11) BUN (7-18) mg/dl Creatinine (0.6-1.4) mg/dl Est Cr Clr Drug Dosing ml/min Est GFR ( Amer) ml/min Est GFR (Non-Af Amer) ml/min BUN/Creatinine Ratio (10-20) Glucose (70-99) mg/dl Calcium (8.5-10.1) mg/dl Magnesium (1.8-2.4) mg/dl TSH (0.300-4.500) uIu/ml SARS-CoV-2 (PCR) NEGATIVE (Negative) Influ A Molecular Assay (Negative) Influ B Molecular Assay (Negative) PG Care Time/CCT Total # of Minutes Spent Total Time Spent with Patient: Total time spent is greater than 50% in coordination of care (as documented) at patient's floor/unit and/or counseling patient: Coding Level of Care Code 21280 Subseq Hosp Care Lvl 2 Diagnoses COPD (chronic obstructive pulmonary disease) J43.8 COPD type: emphysema Emphysema type: other Hypothyroidism E03.9 Hypothyroidism type: unspecified Hypercholesteremia E78.00 Hypertension I10 Hypertension type: essential hypertension Cigarette nicotine dependence F17.219 Substance use status: unspecified nicotine-induced disorder Carotid arterial disease I77.9 Chronic respiratory failure with hypoxia J96.11 DVT prophylaxis Z29.9 (1) COPD (chronic obstructive pulmonary disease) COPD type: emphysema Emphysema type: other Qualified Code(s): J43.8 - Other emphysema (2) Hypothyroidism Hypothyroidism type: unspecified Qualified Code(s): E03.9 - Hypothyroidism, unspecified (3) Hypertension Hypertension type: essential hypertension Qualified Code(s): I10 - Essential (primary) hypertension (4) Cigarette nicotine dependence Substance use status: unspecified nicotine-induced disorder Qualified Code(s): F17.219 - Nicotine dependence, cigarettes, with unspecified nicotine- induced disorders
[2021-01-10] MEDS: SIMVASTATIN 40 MG TAB PO SCH (21:07)
[2021-01-10] MEDS: ENOXAPARIN INJ 40 MG/0.4 ML SYR SQ SCH (21:07)
[2021-01-11] MEDS: ALBUTEROL 0.083% NEBU SOLN 3 ML VIAL NEB SCH ×2 (01:35→07:19)
[2021-01-11] MEDS ORDERED: LEVOTHYROXINE SODIUM 112 MCG TABLET PO SCH (06:30)
[2021-01-11] MEDS ORDERED: AZITHROMYCIN 250 MG TAB PO SCH (09:00)
[2021-01-11] MEDS: FLUTICASONE/VILANTEROL 200/25MCG 14 PUFFS/INHALER INH SCH (10:09)
[2021-01-11] MEDS: LISINOPRIL/HCTZ 10/12.5MG TAB PO SCH (10:10)
[2021-01-11] MEDS: NICOTINE 14 MG/24 HR PATCH TD SCH (10:10)
[2021-01-11] MEDS: CHOLECALCIFEROL 1,000 UNITS 25 MCG TAB PO SCH (10:10)
[2021-01-11] MEDS: predniSONE 20 MG TAB PO SCH (10:11)
[2021-01-11] MEDS: UMECLIDINIUM BROMIDE 62.5MCG/BLISTER 7 PUFFS/INHALER INH SCH (10:11)
[2021-01-11] MEDS ORDERED: Nursing to Pharmacy Communication SCH (10:15)
[2021-01-11] MEDS ORDERED: EUCERIN CR 120 GM JAR EXT PRN (10:20)
[2021-01-11] MEDS ORDERED: IPRATROPIUM BROMIDE HFA INHALER INH SCH (11:00)
[2021-01-11] MEDS ORDERED: ALBUTEROL HFA 8 GM INHALER INH SCH (11:00)
--- NOTE | 2021-01-11 11:06 | Discharge Summary ---
Date of Service January 11, 2021 Admission HPI Per Admitting Provider 80 YOM continued smoker 1/2 ppd, with severe COPD, HTN, HLD, Hypothyroidism, received his COVID vaccines x2. [facility] was at [facility] for [facility] follow up [facility], where he became extremely dyspneic and was transferred to [facility]. In the EMD, the patient received 1Liter of 0.9% saline and albuterol nebulizer, with CXR. Hospitalist service was notified for admission. Upon reviewing the patients information, the patient is has severe COPD to the point that he has been having difficulty making his PCP appointments and pulmonary appointments, as most of these have been converted to virtual appointments to continue to help him with his disease. He gets dyspneic with any activity that he performs and he is on 3-4 L chronic oxygen at home, with sedentary lifestyle noted. Patient is not conversationally dyspneic however when he stops talking he starts to gasp to catch his breath and when using pursed lip breathing he calms his respirations down. Patient will be started on prednisone 40mg Daily starting today and continue his inhalers and follow his symptom control. Principal Diagnosis COPD Exacerbation Discharge Exam Constitutional + thin; no acute distress Eyes + anicteric sclerae Neck trachea midline, no thyromegaly Respiratory normal respiratory effort Auscultation: + diminished lung sounds (throughout); no crackles and no wheezes Cardiovascular RRR, no murmur, no edema Chest (Breasts) Chest: normal inspection of chest Gastrointestinal (Abdomen) normal bowel sounds, soft, nontender, no hepatosplenomegaly Musculoskeletal Extremities: extremities normal to inspection; no cyanosis and no clubbing Skin no rashes, warm and dry Neurologic moves all extremities and awake; no focal motor deficits Psychiatric A+Ox3, euthymic affect Lymphatic no lymphedema Discharge Data Allergies Allergy/AdvReac Type Severity Reaction Status Date / Time amoxicillin [From Augmentin] Allergy Severe Verified 01/09/21 16:22 clavulanic acid Allergy Severe Verified 01/09/21 16:22 [From Augmentin] tetanus toxoid, adsorbed Allergy Intermediate INJECTION Unverified 01/09/21 16:22 SITE SWELLING Consultations 01/09/21 17:21 ED Decision to Admit Stat Ordered Studies Chest X-Ray 01/09/21 15:24 SINGLE VIEW CHEST CLINICAL HISTORY: Dyspnea. FINDINGS: 2 AP, portable, upright chest radiographs are obtained. No prior studies are available for comparison at the time of dictation. The examination is degraded by portable technique and patient rotation. The heart is top normal for projection noting advanced atherosclerotic calcification of the thoracic aorta. Advanced emphysema and chronic interstitial thickening is similar to prev ious. Foci of parenchymal scarring are scattered throughout both lungs. No airspace consolidation or large pleural effusion is identified. No pneumothorax is seen. The skeletal structures are osteopenic. The bony thorax is grossly intact. There is advanced atherosclerotic calcification of the right carotid bulb. IMPRESSION: Advanced emphysematous change with no acute cardiopulmonary abnormality. ACT 112: Negative or not required by law. Electronically signed by: Carlin Zapata M.D. 01/09/2021 4:42 PM Chest X-Ray 01/09/21 19:51 XR chest 1V portable HISTORY: Dyspnea. COMPARISON: Chest 01/09/2021. FINDINGS: The lungs are hyperexpanded with severe emphysematous changes. No pneumothorax. No pleural effusion is. The heart is normal in size. No new focal lung consolidations to suggest a pneumonia. There is mild residual thickening which is likely chronic. No evidence for pulmonary edema. Degenerative changes again noted within the bilateral shoulders. IMPRESSION: 1. Severe emphysema, unchanged. 2. No new focal lung consolidations to suggest pneumonia. ACT 112: Negative or not required by law. Electronically signed by: Joel Guevara M.D. 01/09/2021 9:20 PM Hospital Course (1) COPD (chronic obstructive pulmonary disease): With acute COPD exacerbation Presented with tachypenea and respiratory distress Severe obstructive from PFT 2019 Now on home O2 requirement of 4LNC, no further tachypnea May be some anxiety component Much improved, back to baseline - Continue Spiriva - Continue Symbicort - Oral prednisone 40mg qd wean down and titrate off over the next 10 days - with his minimal exacerbating symptoms don't see any role of changing his cur rent inhalers or adding roflumilast continue albuterol prn Patient with very few exacerbations or admission- Anxiety from his dyspnea may be playing an active role with his process. Not conversationally dyspneic, no change in oxygen requirements, no change in sputum. His Co2 on VBG was 58. No acute changes on his CXR. Could consider adding low dose clonazepam for this if not too sedating-defer to PCP for this fci -finish out azithromycin x 5 day course for COPD exacerbation -still smoking and no desire to quit (2) Hypothyroidism: TSH low at 0.117 -decreased dose to 112 mcg -follow TSH in 6 weeks as outpt (3) Hypercholesteremia: Care at [facility] for his HTN and HLD - Continue statin (4) Hypertension: Continue lisinopril/HCTZ combo - well controlled (5) Cigarette nicotine dependence: Continue to smoke with home oxygen and severe COPD - Nicotene patch ordered - Smoking cessation education will be provided again - Patient does want to go home to smoke (6) Carotid arterial disease: continue statin is not on ASA that I can see-defer to PCP (7) Chronic respiratory failure with hypoxia: on home O2 3-4L continue such (8) DVT prophylaxis: Lovenox SQ Dispo-dc to home PT/OT consults placed as pt quite unsteady on feet, however pt reports he absolutely will not go to a rehab facility Total Time Total Time Spent Total Time Spent (In Minutes): 35 min Total Time Includes: Examination of the Patient, Discharge Planning and Medication Reconciliation Discharge Plan Discharge Items Patient Disposition: Home - Self-Care Reason For Visit: COPD Discharge Diagnosis: COPD Exacerbation Condition on Discharge: Fair Activity: Resume your previous activity Non-emergency contact: Primary Care Provider Call non-emergency contact if: you have any medication questions and your symptoms worsen Follow-up/Referrals: Joseph Carrillo III, MD [Primary Care Provider] - (Dr. Carrillo is unavailable.) Stephany Nassar PA-C [Physician Computational Sciences Professor] - 01/21/21 11:30 am (Dr. Carrillo is unavailable. Follow up appointment scheduled with Stephany Nassar PA-C on Wednesday01/21/21 at 11:30 am.) Diet: Heart Healthy Addtl Attending Provider Instructions: Please finish out the course of prednisone over 10 days and 3 more days of the antibiotic, azithromycin. Your thyroid medication was decreased in dose as your thyroid function was overactive. Follow up with your PCP within 1 week. Pending Studies at Discharge: No Stand-Alone Forms: My [employer], Smoking Cessation Medications and DC Order Prescriptions: New prednisone 20 mg Tablet 40 mg PO QAM Qty: 20 RF: 0 levothyroxine [Synthroid] 112 mcg Tablet 112 mcg PO DAILYBB Qty: 30 RF: 0 Continued budesonide-formoterol 160-4.5 mcg/actuation HFA aerosol inhaler 2 inh inhalation BID Qty: 1 RF: 5 lisinopril-hydrochlorothiazide 10-12.5 mg tablet 1 tab PO QAM RF: 0 hydrocodone-acetaminophen 5-325 mg tablet 1 tab PO Q8H PRN (Reason: pain) RF: 0 simvastatin 80 mg Tablet 40 mg PO HS RF: 0 cholecalciferol (vitamin D3) [Vitamin D3] 25 mcg (1,000 unit) Tablet 25 mcg PO QAM RF: 0 tiotropium bromide 2.5 mcg/actuation Mist 2 puff INHALATION DAILY PRN (Reason: COPD) RF: 0 albuterol sulfate 90 mcg/actuation HFA aerosol inhaler 2 puffs inhalation Q6H PRN (Reason: Shortness Of Breath Or Wheezing) RF: 0 ipratropium-albuterol 20-100 mcg/actuation mist 2 puff inhalation QID RF: 0 Discontinued levothyroxine 125 mcg capsule 125 mcg PO QAM RF: 0 Discharge Orders: Discharge Order (Routine); Ordered 01/11/21 Ordered By: Petrona Ordonez Admission Data Admit Date/Time: 01/09/21 17:48 Attending Provider: Petrona Ordonez Admit Provider: Arjun Meyer Primary Care Provider: Joseph Carrillo III Other Providers: Arjun Meyer ; [facility] Other Interventions: Discharge Summary Assessment (RN) Last Done: 01/11/21 12:18 Coding Level of Care Code D/C Day Management >30 mins Diagnoses COPD (chronic obstructive pulmonary disease) J43.8 COPD type: emphysema Emphysema type: other Hypothyroidism E03.9 Hypothyroidism type: unspecified Hypercholesteremia E78.00 Hypertension I10 Hypertension type: essential hypertension Cigarette nicotine dependence F17.219 Substance use status: unspecified nicotine-induced disorder Carotid arterial disease I77.9 Chronic respiratory failure with hypoxia J96.11 DVT prophylaxis Z29.9
--- NOTE | 2021-01-20 14:19 | Coding Query ---
To promote full compliance with coding requirements relating to patient care, provider participation is requested in all cases of private tutor uncertainty. Please assist us with the question(s) below: Coding Question(s): The diagnosis(es) below was documented in the Addendum on the 01/10/21 Progress Note, then subsequently fell off all further documentation. Please indicate if it is still a possible diagnosis or ruled out. Physician's Response(s): ACUTE AND CHRONIC RESPIRATORY FAILURE - please specify regarding the ACUTE RESPIRATORY FAILURE diagnosis. ( x ) Diagnosed and POA ( ) Diagnosed and not POA ( ) Ruled out ( ) Other (please specify) MTDD
== END 2021-01-11 13:00 | disposition home or self-care (01) | DRG 190 ==
LOC: ED 14:54 → SUATTDRO 17:48 → 2S 17:48

== ENCOUNTER 2021-09-16 09:57 | Inpatient (IN) ==
[~2021-09-16 09:57] MED LIST: SODIUM CHLORIDE 0.9% 1000ML 1,000 ML IV SCH; VANCOMYCIN CONSULT ACTIVE PRN; VANCOMYCIN HCL 2,500 MG in SODIUM CHLORIDE 0.9% 500 ML IV STA; levoFLOXacin/D5W 750 MG/150 ML BAG IV STA
--- NOTE | 2021-09-16 10:11 | Emergency Department Note ---
History of Present Illness General Chief complaint: Altered Mental Status Stated complaint: CONFUSION, AMS, FALLS, HYPOTENSION History of Present Illness 81-year-old male presents to the ED with a chief complaint of decreased alertness as well as falls. The patient also reports generalized pain and some shortness of breath. He is a poor historian. He has difficulty communicating. He does answer basic questions yes or no although it is somewhat difficult to understand. The patient reportedly lives alone. He was reportedly found on the floor yesterday by a neighbor and put back into bed. He was found again on the floor today. He is reportedly fallen or been on the floor possibly for the past 3 days intermittently. EMS arrived and evaluated the patient. They found his initial blood pressure be 70/26 and 62/32. His respiratory rate was 40. His heart rate was 80 and his oxygen saturations were 96% on 6 L. He does use 4 L of oxygen at home for COPD. The patient was given 800 cc normal saline bolus and his blood pressure improved. Home Medications Medication Instructions Recorded Confirmed Type lisinopril 10 1 tab PO QAM tab 03/31/19 01/09/21 History mg-hydrochlorothiazide 12.5 mg tablet hydrocodone 5 mg-acetaminophen 325 1 tab PO Q8H PRN tab 05/03/19 01/09/21 History mg tablet cholecalciferol (vitamin D3) 25 25 mcg PO QAM 01/09/21 01/09/21 History mcg (1,000 unit) tablet (Vitamin D3) simvastatin 80 mg tablet 40 mg PO HS 01/09/21 01/09/21 History tiotropium bromide 2.5 2 puff INHALATION DAILY PRN 01/09/21 01/09/21 History mcg/actuation mist for inhalation levothyroxine 112 mcg tablet 112 mcg PO DAILYBB #30 tab 01/11/21 Rx (Synthroid) albuterol sulfate 90 mcg/actuation 2 puff INHALATION Q6H PRN #18 g 08/28/21 08/28/21 Rx aerosol inhaler ipratropium 20 mcg-albuterol 100 See Rx Instructions .ROUTE 08/28/21 08/28/21 Rx mcg/actuation mist for inhalation .COMPLEX #12 milliliter (Combivent Respimat) budesonide-formoterol HFA 160 2 inh INHALATION BID #1 g 09/08/21 Rx mcg-4.5 mcg/actuation aerosol inhaler Allergies Allergy/AdvReac Type Severity Reaction Status Date / Time amoxicillin [From Augmentin] Allergy Severe Verified 01/09/21 16:22 clavulanic acid Allergy Severe Verified 01/09/21 16:22 [From Augmentin] tetanus toxoid, adsorbed Allergy Intermediate INJECTION Unverified 01/09/21 16:22 SITE SWELLING Past Med/Surg History Medical History Carotid arterial disease Chronic respiratory failure with hypoxia COPD (chronic obstructive pulmonary disease) External hemorrhoid Hypercholesteremia Hypertension Hypothyroidism Rectal bleeding Surgical History History of prostate surgery Status post carotid surgery left CEA Family History Family/Other Diabetes Breast cancer Hypertension Social History Smoking Status: Unknown if ever smoked Tobacco Type: Cigarettes packs per day: 0.5; Cigarettes Per Day: 10; Second Hand Exposure: Yes; Hx Alcohol Use: No Hx Substance Use: No Preferred Language: Micronesian Communication Ability: 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 Beliefs That Will Affect Care: None marital status: Single Current Living Situation: Alone current occupational status: retired Feels Safe at Home: Yes Childhood Exposure to Second-Hand Smoke: Yes Dental Care, Regularly: No Physical Activity Frequency: Does not Exercise Assistive Devices: Walker Review of Systems Unobtainable due to cognitive status Physical Exam Vital Signs Vital Signs - 24 hr 09/16/21 10:04 09/16/21 11:00 09/16/21 11:47 Temperature 34.8 C L Temperature Source Cuevas Cath ( Temp Sensing) Pulse Rate 75 Pulse Rate [Left Finger] 74 Pulse Rate from SpO2 Sensor Pulse Rhythm Regular Pulse Strength Normal Respiratory Rate 22 22 Respiratory Effort / Characteristics Non-Labored Spontaneous Spontaneous Respiratory Depth Normal Respiratory Pattern Regular Blood Pressure 153/41 H Blood Pressure Mean 78 Blood Pressure Position Lying Pulse Oximetry 100 Oxygen Delivery Method Nasal Cannula Nasal Cannula Oxygen Flow Rate 4 4 Sepsis Recent Fever Within 48 Hours No Sepsis New/Unexplained Change in Mental Status N/A Sepsis Action Taken by Nursing No Action Required 09/16/21 11:49 09/16/21 11:55 09/16/21 12:00 Temperature 34.7 C L 34.7 C L 34.7 C L Temperature Source Pulse Rate 78 76 75 Pulse Rate [Left Finger] Pulse Rate from SpO2 Sensor 74 Pulse Rhythm Pulse Strength Respiratory Rate 24 26 H 35 H Respiratory Effort / Characteristics Respiratory Depth Respiratory Pattern Blood Pressure 127/54 L 140/47 L 123/55 L Blood Pressure Mean 78 78 77 Blood Pressure Position Pulse Oximetry 100 99 99 Oxygen Delivery Method Nebulizer Nasal Cannula Nasal Cannula Oxygen Flow Rate 7 4 4 Sepsis Recent Fever Within 48 Hours Sepsis New/Unexplained Change in Mental Status Sepsis Action Taken by Nursing 09/16/21 12:05 09/16/21 12:34 09/16/21 12:35 Temperature 34.7 C L 34.8 C L 34.8 C L Temperature Source Pulse Rate Pulse Rate [Left Finger] Pulse Rate from SpO2 Sensor Pulse Rhythm Pulse Strength Respiratory Rate 26 H 24 24 Respiratory Effort / Characteristics Respiratory Depth Respiratory Pattern Blood Pressure 133/50 L 142/43 H 139/36 L Blood Pressure Mean 77 76 70 Blood Pressure Position Pulse Oximetry 100 100 100 Oxygen Delivery Method Nasal Cannula Nasal Cannula Nasal Cannula Oxygen Flow Rate 4 4 4 Sepsis Recent Fever Within 48 Hours Sepsis New/Unexplained Change in Mental Status Sepsis Action Taken by Nursing 09/16/21 12:40 09/16/21 12:45 09/16/21 12:50 Temperature 34.8 C L 34.8 C L 34.9 C L Temperature Source Pulse Rate 74 Pulse Rate [Left Finger] Pulse Rate from SpO2 Sensor Pulse Rhythm Pulse Strength Respiratory Rate 35 H 30 H 26 H Respiratory Effort / Characteristics Respiratory Depth Respiratory Pattern Blood Pressure 145/43 H 139/52 L 136/52 L Blood Pressure Mean 77 81 80 Blood Pressure Position Pulse Oximetry 98 98 96 Oxygen Delivery Method Nasal Cannula Nasal Cannula Nasal Cannula Oxygen Flow Rate 4 4 2 Sepsis Recent Fever Within 48 Hours Sepsis New/Unexplained Change in Mental Status Sepsis Action Taken by Nursing 09/16/21 12:55 09/16/21 13:00 09/16/21 13:05 Temperature 35.0 C L 35.0 C L 35.1 C L Temperature Source Pulse Rate 76 Pulse Rate [Left Finger] Pulse Rate from SpO2 Sensor Pulse Rhythm Pulse Strength Respiratory Rate 33 H 37 H 36 H Respiratory Effort / Characteristics Respiratory Depth Respiratory Pattern Blood Pressure 146/48 H 139/51 L 136/53 L Blood Pressure Mean 80 80 80 Blood Pressure Position Pulse Oximetry 96 93 93 Oxygen Delivery Method Nasal Cannula Nasal Cannula Nasal Cannula Oxygen Flow Rate 2 2 2 Sepsis Recent Fever Within 48 Hours Sepsis New/Unexplained Change in Mental Status Sepsis Action Taken by Nursing 09/16/21 13:10 09/16/21 13:15 Temperature 35.2 C L 35.2 C L Temperature Source Pulse Rate 75 67 Pulse Rate [Left Finger] Pulse Rate from SpO2 Sensor Pulse Rhythm Pulse Strength Respiratory Rate 37 H 35 H Respiratory Effort / Characteristics Respiratory Depth Respiratory Pattern Blood Pressure 131/52 L 132/60 Blood Pressure Mean 78 84 Blood Pressure Position Pulse Oximetry 94 95 Oxygen Delivery Method Nasal Cannula Nasal Cannula Oxygen Flow Rate 2 2 Sepsis Recent Fever Within 48 Hours Sepsis New/Unexplained Change in Mental Status Sepsis Action Taken by Nursing CONSTITUTIONAL/VITAL SIGNS: Reviewed / noted above. GENERAL: Non-toxic in appearance. INTEGUMENTARY: Warm, dry, and [place]. The patient has multiple bruises on the extremities and body and pressure sores. HEAD: Normocephalic. EYES: without scleral icterus or trauma. ENT/OROPHARYNX: clear and very dry. LYMPHADENOPATHY/NECK: Is supple without lymphadenopathy or meningismus. RESPIRATORY: Clear to auscultation bilaterally. No increased work of breathing. CARDIOVASCULAR: Regular rate and rhythm. GI/ABDOMEN: Soft and nontender. No organomegaly or pulsatile mass. EXTREMITIES: Cool and poorly perfused. NEUROLOGICAL: Intact without focal deficits. PSYCHIATRIC: normal affect. MUSCULOSKELETAL: Poor muscle tone with multiple pressure sores and erythema from possibly being on the ground for a prolonged period of time. TRIAGE NURSING DOCUMENTATION REVIEWED. Procedures Central Line Placement Right IJ: Time Out Performed: Yes Patient Placed on Monitor/Pulse Ox: Yes MD Prep: mask, gown and gloves Central Line Prep: Chlorhexidine scrub Local Anesthetic: lidocaine 1% Amount of anesthesia used (mL): 3 Ultrasound Used for Placement: Yes Central Line Lumen Inserted: triple Post Procedure: sutured in place, good blood return, all ports aspirated, flushed, capped and sterile dressing applied Post Procedure X-Ray: tip of catheter in good position and no pneumothorax seen Patient Tolerated Procedure: well and no complications Course Administered Medications Sodium Bicarbonate 150 meq/ (Dextrose) 1,150 mls @ 290 mls/hr IV .Q3H58M STA Stop: 09/16/21 14:34 Last Admin: 09/16/21 11:39 Dose: 290 mls/hr Documented by: [id number] Norepinephrine Bitartrate (Levophed/D5w) 8 mg in 508 mls @ 12.668 mls/hr IV .Q24H JACQUELINE; Protocol Stop: 10/16/21 11:44 Last Admin: 09/16/21 11:41 Dose: 0.05 mcg/kg/min, 12.7 mls/hr Documented by: [id number] Cosigned by: [id number] Discontinued Medications Albuterol (Albuterol 0.5% Neb Soln 2.5 Mg/0.5 Ml Vial) 10 mg NEB NOW STA Stop: 09/16/21 10:38 Last Admin: 09/16/21 11:46 Dose: 10 mg Documented by: [id number] Dextrose (Dextrose 50% 50 Ml Syringe) 50 ml IV NOW STA Stop: 09/16/21 10:38 Last Admin: 09/16/21 11:12 Dose: 50 ml Documented by: [id number] Sodium Chloride (Nss 1000ml) 1,000 mls @ 999 mls/hr IV .Q1H1M [facility] Stop: 09/16/21 10:45 Last Infusion: 09/16/21 12:05 Dose: 0 mls/hr Documented by: [id number] Admin: 09/16/21 11:01 Dose: 999 mls/hr Documented by: [id number] Sodium Chloride (Nss 1000ml) 1,000 mls @ 999 mls/hr IV .Q1H1M [facility] Stop: 09/16/21 11:44 Last Infusion: 09/16/21 12:05 Dose: 0 mls/hr Documented by: [id number] Admin: 09/16/21 11:01 Dose: 999 mls/hr Documented by: [id number] Levofloxacin/Dextrose (Levaquin/D5w) 750 mg in 150 mls @ 100 mls/hr IV NOW STA Stop: 09/16/21 11:12 Last Infusion: 09/16/21 12:05 Dose: 0 mls/hr Documented by: [id number] Admin: 09/16/21 10:30 Dose: 100 mls/hr Documented by: [id number] Vancomycin HCl 1,500 mg/ (Sodium Chloride) 530 mls @ 200 mls/hr IV NOW ONE Stop: 09/16/21 13:23 Last Admin: 09/16/21 11:43 Dose: 200 mls/hr Documented by: [id number] Calcium Gluconate 1,000 mg/ (Dextrose) 60 mls @ 240 mls/hr IV ONCE STA Stop: 09/16/21 10:51 Last Infusion: 09/16/21 12:05 Dose: 0 mls/hr Documented by: [id number] Admin: 09/16/21 11:29 Dose: 240 mls/hr Documented by: [id number] Insulin Human Regular 10 units (/ Syringe) 9.9 mls @ 3 mls/sec IV ONE STA Stop: 09/16/21 10:38 Last Admin: 09/16/21 11:15 Dose: 3 mls/sec Documented by: [id number] Cosigned by: [id number] Insulin Human Regular (Novolin-R Insulin Per Unit Charge) Confirm Administered Dose 10 units .ROUTE .STK-MED ONE Stop: 09/16/21 11:09 Last Admin: 09/16/21 11:36 Dose: Not Given Documented by: [id number] Miscellaneous (Stat Iv) 1 ea N/A NOW STA Stop: 09/16/21 10:38 Last Admin: 09/16/21 11:32 Dose: Not Given Documented by: [id number] Sodium Polystyrene Sulfonate (Sodium Polystyrene Sulfonate 15g/60ml Susp) [address] NOW STA Stop: 09/16/21 10:38 Last Admin: 09/16/21 13:10 Dose: Not Given Documented by: [id number] Critical Care Time Critical Care Time: Yes Total Critical Care Time: 65 I have personally spent 65 minutes of critical care time in the direct management of this patient. This includes bedside care, interpretation of diagnostic studies, and testing, discussion with consultants, patient, and family members, and other required patient management activities. This 65 minutes is in excess of all separately billable procedures. Medical Decision Making Differential Diagnosis Differential includes acute coronary syndrome, myocardial infarction, CVA, TIA, anemia, infection, pneumonia, UTI, pyelonephritis, poor nutrition, dehydration, electrolyte disturbance,hypoglycemia. Medical Records Attestation: I reviewed the patient's medical records. Home Medications Current Medication List: was personally reviewed by me Laboratory Data Attestation: I reviewed the patient's lab results. Result diagrams: 09/16/21 10:29 09/16/21 10:29 Lab Results 09/16/21 09/16/21 09/16/21 Range/Units 10:21 10:29 10:29 WBC (4.8-10.8) K/uL RBC (4.7-6.1) M/uL Hgb (14.0-18.0) g/dL POC Hgb 15.0 (14.0-18.0) g/dl Hct (42-52) % POC Hct 44 (42-52) % MCV (80-100) fL MCH (25-34) pg MCHC (32-36) g/dL RDW Std Deviation (36.4-46.3) fL RDW Coeff of Scott (11.5-14.5) % Plt Count (130-400) K/uL MPV (7.4-10.4) fL Immature Gran % (Auto) % Neut % (Auto) % Lymph % (Auto) % Blanco % (Auto) % Eos % (Auto) % Baso % (Auto) % Neut # (Auto) (1.4-6.5) K/uL Lymph # (Auto) (1.2-3.4) K/uL Blanco # (Auto) (0.11-0.59) K/uL Eos # (Auto) (0-0.5) K/uL Baso # (Auto) (0-0.2) K/uL Immature Gran # (Auto) (0.00-0.02) K/uL PT (9.0-12.0) Seconds INR (0.9-1.1) APTT (21.0-31.0) Seconds PTT Ratio ABG pH (7.35-7.45) ABG pCO2 (35-46) mmHg ABG pO2 (80-95) mmHg ABG HCO3 (19-24) mmol/L ABG O2 Saturation (90-95) % ABG Base Excess (-9-1.8) mEq/L Philippe Test (Pos) Barometric Pressure mm/Hg Oxygen Given POC Sodium 134 L (135-144) mmol/L Sodium 138 (136-145) mmol/L POC Potassium 7.3 H* (3.3-5.0) mmol/L Potassium 7.4 H* (3.5-5.1) mmol/L POC Chloride 93 L (101-112) mmol/L Chloride 97 L (98-107) mmol/L Carbon Dioxide 27 (21-32) mmol/L POC Total CO2 27 (24-31) mmol/L Anion Gap 14 H (3-11) POC Anion Gap 21.0 (16-25) mmol/L POC BUN 103 H* (7-18) mg/dl BUN 89 H (6-23) mg/dl Creatinine 1.88 H (0.6-1.4) mg/dl POC Creatinine 3.0 H (0.6-1.3) mg/dl Est Cr Clr Drug Dosing Not Reportable Est GFR ( Amer) 37.4 ml/min Est GFR (Non-Af Amer) 32.3 ml/min BUN/Creatinine Ratio 47.3 H (10-20) Glucose 110 H (70-99(Fasting)) mg/dl POC Glucose (other) 83 (70-99) mg/dl Lactate (0.4-2.0) mmol/L Calcium 8.4 L (8.5-10.1) mg/dl POC Ioniz Calcium Mylene 0.93 L (1.12-1.32) mmol/l Magnesium 2.6 H (1.7-2.4) mg/dl Total Bilirubin 0.7 (0.2-1.0) mg/dl AST 175 H (13-39) U/L ALT 59 H (7-52) U/L Alkaline Phosphatase 83 (34-104) U/L Total Creatine Kinase 3395 H (30-223) U/L Troponin I 0.29 H* (0-0.04) ng/ml Total Protein 5.8 L (6.0-8.3) gm/dl Albumin 3.3 L (3.4-5.0) gm/dl Globulin 2.5 (2.5-4.0) gm/dl Albumin/Globulin Ratio 1.3 (0.9-2) Procalcitonin 7.49 H (0-0.5) ng/ml Urine Color Urine Appearance (Clear) Urine pH (4.5-7.5) Ur Specific Lester (1.000-1.030) Urine Protein (Negative) Urine Glucose (UA) (Negative) Urine Ketones (Negative) Urine Blood (Negative) Urine Nitrite (Negative) Urine Bilirubin (Negative) Urine Urobilinogen (Negative) Ur Leukocyte Esterase (Negative) Urine WBC (Auto) (0-5) /hpf Urine RBC (Auto) (0-4) /hpf U Hyaline Cast (Auto) (0-5) /lpf U Epithel Cells (Auto) (0-5) /lpf Urine Bacteria (Auto) (Negative) Adenovirus (PCR) (NotDetected) B. pertussis DNA (PCR) (NotDetected) B.parapertussis DNA PCR (NotDetected) C. pneumoniae DNA (PCR) (NotDetected) Coronavirus OC43 (PCR) (NotDetected) Coronavirus HKU1 (PCR) (NotDetected) Coronavirus 229E (PCR) (NotDetected) SARS-CoV-2 (PCR) (NotDetected) Coronavirus NL63 (PCR) (NotDetected) Human Metapneumovir PCR (NotDetected) Influenza Type A (PCR) (NotDetected) Influenza Type B (PCR) (NotDetected) M. pneumoniae (PCR) (NotDetected) Parainfluenza 1 (PCR) (NotDetected) Parainfluenza 2 (PCR) (NotDetected) Parainfluenza 3 (PCR) (NotDetected) Parainfluenza 4 (PCR) (NotDetected) RSV (PCR) (NotDetected) Entero/Rhino (PCR) (NotDetected) Blood Type Antibody Screen 09/16/21 09/16/21 09/16/21 Range/Units 10:29 10:29 10:29 WBC 34.34 H* (4.8-10.8) K/uL RBC 4.55 L (4.7-6.1) M/uL Hgb 15.0 (14.0-18.0) g/dL POC Hgb (14.0-18.0) g/dl Hct 45.0 (42-52) % POC Hct (42-52) % MCV 98.9 (80-100) fL MCH 33.0 (25-34) pg MCHC 33.3 (32-36) g/dL RDW Std Deviation 49.9 H (36.4-46.3) fL RDW Coeff of Scott 14.0 (11.5-14.5) % Plt Count 291 (130-400) K/uL MPV 9.9 (7.4-10.4) fL Immature Gran % (Auto) 5.1 % Neut % (Auto) 83.4 % Lymph % (Auto) 2.6 % Blanco % (Auto) 8.8 % Eos % (Auto) 0.0 % Baso % (Auto) 0.1 % Neut # (Auto) 28.64 H (1.4-6.5) K/uL Lymph # (Auto) 0.91 L (1.2-3.4) K/uL Blanco # (Auto) 3.03 H (0.11-0.59) K/uL Eos # (Auto) 0.00 (0-0.5) K/uL Baso # (Auto) 0.02 (0-0.2) K/uL Immature Gran # (Auto) 1.74 H (0.00-0.02) K/uL PT 10.0 (9.0-12.0) Seconds INR 1.0 (0.9-1.1) APTT 29.1 (21.0-31.0) Seconds PTT Ratio 1.1 ABG pH (7.35-7.45) ABG pCO2 (35-46) mmHg ABG pO2 (80-95) mmHg ABG HCO3 (19-24) mmol/L ABG O2 Saturation (90-95) % ABG Base Excess (-9-1.8) mEq/L Philippe Test (Pos) Barometric Pressure mm/Hg Oxygen Given POC Sodium (135-144) mmol/L Sodium (136-145) mmol/L POC Potassium (3.3-5.0) mmol/L Potassium (3.5-5.1) mmol/L POC Chloride (101-112) mmol/L Chloride (98-107) mmol/L Carbon Dioxide (21-32) mmol/L POC Total CO2 (24-31) mmol/L Anion Gap (3-11) POC Anion Gap (16-25) mmol/L POC BUN (7-18) mg/dl BUN (6-23) mg/dl Creatinine (0.6-1.4) mg/dl POC Creatinine (0.6-1.3) mg/dl Est Cr Clr Drug Dosing Est GFR ( Amer) ml/min Est GFR (Non-Af Amer) ml/min BUN/Creatinine Ratio (10-20) Glucose (70-99(Fasting)) mg/dl POC Glucose (other) (70-99) mg/dl Lactate 1.0 (0.4-2.0) mmol/L Calcium (8.5-10.1) mg/dl POC Ioniz Calcium Mylene (1.12-1.32) mmol/l Magnesium (1.7-2.4) mg/dl Total Bilirubin (0.2-1.0) mg/dl AST (13-39) U/L ALT (7-52) U/L Alkaline Phosphatase (34-104) U/L Total Creatine Kinase (30-223) U/L Troponin I (0-0.04) ng/ml Total Protein (6.0-8.3) gm/dl Albumin (3.4-5.0) gm/dl Globulin (2.5-4.0) gm/dl Albumin/Globulin Ratio (0.9-2) Procalcitonin (0-0.5) ng/ml Urine Color Urine Appearance (Clear) Urine pH (4.5-7.5) Ur Specific Lester (1.000-1.030) Urine Protein (Negative) Urine Glucose (UA) (Negative) Urine Ketones (Negative) Urine Blood (Negative) Urine Nitrite (Negative) Urine Bilirubin (Negative) Urine Urobilinogen (Negative) Ur Leukocyte Esterase (Negative) Urine WBC (Auto) (0-5) /hpf Urine RBC (Auto) (0-4) /hpf U Hyaline Cast (Auto) (0-5) /lpf U Epithel Cells (Auto) (0-5) /lpf Urine Bacteria (Auto) (Negative) Adenovirus (PCR) (NotDetected) B. pertussis DNA (PCR) (NotDetected) B.parapertussis DNA PCR (NotDetected) C. pneumoniae DNA (PCR) (NotDetected) Coronavirus OC43 (PCR) (NotDetected) Coronavirus HKU1 (PCR) (NotDetected) Coronavirus 229E (PCR) (NotDetected) SARS-CoV-2 (PCR) (NotDetected) Coronavirus NL63 (PCR) (NotDetected) Human Metapneumovir PCR (NotDetected) Influenza Type A (PCR) (NotDetected) Influenza Type B (PCR) (NotDetected) M. pneumoniae (PCR) (NotDetected) Parainfluenza 1 (PCR) (NotDetected) Parainfluenza 2 (PCR) (NotDetected) Parainfluenza 3 (PCR) (NotDetected) Parainfluenza 4 (PCR) (NotDetected) RSV (PCR) (NotDetected) Entero/Rhino (PCR) (NotDetected) Blood Type Antibody Screen 09/16/21 09/16/21 09/16/21 Range/Units 10:29 10:30 10:30 WBC (4.8-10.8) K/uL RBC (4.7-6.1) M/uL Hgb (14.0-18.0) g/dL POC Hgb (14.0-18.0) g/dl Hct (42-52) % POC Hct (42-52) % MCV (80-100) fL MCH (25-34) pg MCHC (32-36) g/dL RDW Std Deviation (36.4-46.3) fL RDW Coeff of Scott (11.5-14.5) % Plt Count (130-400) K/uL MPV (7.4-10.4) fL Immature Gran % (Auto) % Neut % (Auto) % Lymph % (Auto) % Blanco % (Auto) % Eos % (Auto) % Baso % (Auto) % Neut # (Auto) (1.4-6.5) K/uL Lymph # (Auto) (1.2-3.4) K/uL Blanco # (Auto) (0.11-0.59) K/uL Eos # (Auto) (0-0.5) K/uL Baso # (Auto) (0-0.2) K/uL Immature Gran # (Auto) (0.00-0.02) K/uL PT (9.0-12.0) Seconds INR (0.9-1.1) APTT (21.0-31.0) Seconds PTT Ratio ABG pH 7.22 L (7.35-7.45) ABG pCO2 70 H (35-46) mmHg ABG pO2 219 H (80-95) mmHg ABG HCO3 28 H (19-24) mmol/L ABG O2 Saturation 99.5 H (90-95) % ABG Base Excess -1.7 (-9-1.8) mEq/L Philippe Test Pos (Pos) Barometric Pressure 733.0 mm/Hg Oxygen Given 4 L POC Sodium (135-144) mmol/L Sodium (136-145) mmol/L POC Potassium (3.3-5.0) mmol/L Potassium (3.5-5.1) mmol/L POC Chloride (101-112) mmol/L Chloride (98-107) mmol/L Carbon Dioxide (21-32) mmol/L POC Total CO2 (24-31) mmol/L Anion Gap (3-11) POC Anion Gap (16-25) mmol/L POC BUN (7-18) mg/dl BUN (6-23) mg/dl Creatinine (0.6-1.4) mg/dl POC Creatinine (0.6-1.3) mg/dl Est Cr Clr Drug Dosing Est GFR ( Amer) ml/min Est GFR (Non-Af Amer) ml/min BUN/Creatinine Ratio (10-20) Glucose (70-99(Fasting)) mg/dl POC Glucose (other) (70-99) mg/dl Lactate (0.4-2.0) mmol/L Calcium (8.5-10.1) mg/dl POC Ioniz Calcium Mylene (1.12-1.32) mmol/l Magnesium (1.7-2.4) mg/dl Total Bilirubin (0.2-1.0) mg/dl AST (13-39) U/L ALT (7-52) U/L Alkaline Phosphatase (34-104) U/L Total Creatine Kinase Cancelled (30-223) U/L Troponin I (0-0.04) ng/ml Total Protein (6.0-8.3) gm/dl Albumin (3.4-5.0) gm/dl Globulin (2.5-4.0) gm/dl Albumin/Globulin Ratio (0.9-2) Procalcitonin (0-0.5) ng/ml Urine Color Urine Appearance (Clear) Urine pH (4.5-7.5) Ur Specific Lester (1.000-1.030) Urine Protein (Negative) Urine Glucose (UA) (Negative) Urine Ketones (Negative) Urine Blood (Negative) Urine Nitrite (Negative) Urine Bilirubin (Negative) Urine Urobilinogen (Negative) Ur Leukocyte Esterase (Negative) Urine WBC (Auto) (0-5) /hpf Urine RBC (Auto) (0-4) /hpf U Hyaline Cast (Auto) (0-5) /lpf U Epithel Cells (Auto) (0-5) /lpf Urine Bacteria (Auto) (Negative) Adenovirus (PCR) (NotDetected) B. pertussis DNA (PCR) (NotDetected) B.parapertussis DNA PCR (NotDetected) C. pneumoniae DNA (PCR) (NotDetected) Coronavirus OC43 (PCR) (NotDetected) Coronavirus HKU1 (PCR) (NotDetected) Coronavirus 229E (PCR) (NotDetected) SARS-CoV-2 (PCR) (NotDetected) Coronavirus NL63 (PCR) (NotDetected) Human Metapneumovir PCR (NotDetected) Influenza Type A (PCR) (NotDetected) Influenza Type B (PCR) (NotDetected) M. pneumoniae (PCR) (NotDetected) Parainfluenza 1 (PCR) (NotDetected) Parainfluenza 2 (PCR) (NotDetected) Parainfluenza 3 (PCR) (NotDetected) Parainfluenza 4 (PCR) (NotDetected) RSV (PCR) (NotDetected) Entero/Rhino (PCR) (NotDetected) Blood Type O Positive Antibody Screen NEGATIVE 09/16/21 09/16/21 Range/Units 11:00 12:00 WBC (4.8-10.8) K/uL RBC (4.7-6.1) M/uL Hgb (14.0-18.0) g/dL POC Hgb (14.0-18.0) g/dl Hct (42-52) % POC Hct (42-52) % MCV (80-100) fL MCH (25-34) pg MCHC (32-36) g/dL RDW Std Deviation (36.4-46.3) fL RDW Coeff of Scott (11.5-14.5) % Plt Count (130-400) K/uL MPV (7.4-10.4) fL Immature Gran % (Auto) % Neut % (Auto) % Lymph % (Auto) % Blanco % (Auto) % Eos % (Auto) % Baso % (Auto) % Neut # (Auto) (1.4-6.5) K/uL Lymph # (Auto) (1.2-3.4) K/uL Blanco # (Auto) (0.11-0.59) K/uL Eos # (Auto) (0-0.5) K/uL Baso # (Auto) (0-0.2) K/uL Immature Gran # (Auto) (0.00-0.02) K/uL PT (9.0-12.0) Seconds INR (0.9-1.1) APTT (21.0-31.0) Seconds PTT Ratio ABG pH (7.35-7.45) ABG pCO2 (35-46) mmHg ABG pO2 (80-95) mmHg ABG HCO3 (19-24) mmol/L ABG O2 Saturation (90-95) % ABG Base Excess (-9-1.8) mEq/L Philippe Test (Pos) Barometric Pressure mm/Hg Oxygen Given POC Sodium (135-144) mmol/L Sodium (136-145) mmol/L POC Potassium (3.3-5.0) mmol/L Potassium (3.5-5.1) mmol/L POC Chloride (101-112) mmol/L Chloride (98-107) mmol/L Carbon Dioxide (21-32) mmol/L POC Total CO2 (24-31) mmol/L Anion Gap (3-11) POC Anion Gap (16-25) mmol/L POC BUN (7-18) mg/dl BUN (6-23) mg/dl Creatinine (0.6-1.4) mg/dl POC Creatinine (0.6-1.3) mg/dl Est Cr Clr Drug Dosing Est GFR ( Amer) ml/min Est GFR (Non-Af Amer) ml/min BUN/Creatinine Ratio (10-20) Glucose (70-99(Fasting)) mg/dl POC Glucose (other) (70-99) mg/dl Lactate (0.4-2.0) mmol/L Calcium (8.5-10.1) mg/dl POC Ioniz Calcium Mylene (1.12-1.32) mmol/l Magnesium (1.7-2.4) mg/dl Total Bilirubin (0.2-1.0) mg/dl AST (13-39) U/L ALT (7-52) U/L Alkaline Phosphatase (34-104) U/L Total Creatine Kinase (30-223) U/L Troponin I (0-0.04) ng/ml Total Protein (6.0-8.3) gm/dl Albumin (3.4-5.0) gm/dl Globulin (2.5-4.0) gm/dl Albumin/Globulin Ratio (0.9-2) Procalcitonin (0-0.5) ng/ml Urine Color Dark Yellow Urine Appearance Cloudy A (Clear) Urine pH 5.0 (4.5-7.5) Ur Specific Lester 1.020 (1.000-1.030) Urine Protein 1+ H (Negative) Urine Glucose (UA) Negative (Negative) Urine Ketones Trace H (Negative) Urine Blood 3+ H (Negative) Urine Nitrite Positive A (Negative) Urine Bilirubin 1+ H (Negative) Urine Urobilinogen Negative (Negative) Ur Leukocyte Esterase 1+ H (Negative) Urine WBC (Auto) >30 H (0-5) /hpf Urine RBC (Auto) 10-30 H (0-4) /hpf U Hyaline Cast (Auto) 10-30 H (0-5) /lpf U Epithel Cells (Auto) 0-5 (0-5) /lpf Urine Bacteria (Auto) 2+ H (Negative) Adenovirus (PCR) Not Detected (NotDetected) B. pertussis DNA (PCR) Not Detected (NotDetected) B.parapertussis DNA PCR Not Detected (NotDetected) C. pneumoniae DNA (PCR) Not Detected (NotDetected) Coronavirus OC43 (PCR) Not Detected (NotDetected) Coronavirus HKU1 (PCR) Not Detected (NotDetected) Coronavirus 229E (PCR) Not Detected (NotDetected) SARS-CoV-2 (PCR) Not Detected (NotDetected) Coronavirus NL63 (PCR) Not Detected (NotDetected) Human Metapneumovir PCR Not Detected (NotDetected) Influenza Type A (PCR) Not Detected (NotDetected) Influenza Type B (PCR) Not Detected (NotDetected) M. pneumoniae (PCR) Not Detected (NotDetected) Parainfluenza 1 (PCR) Not Detected (NotDetected) Parainfluenza 2 (PCR) Not Detected (NotDetected) Parainfluenza 3 (PCR) Not Detected (NotDetected) Parainfluenza 4 (PCR) Not Detected (NotDetected) RSV (PCR) Not Detected (NotDetected) Entero/Rhino (PCR) Not Detected (NotDetected) Blood Type Antibody Screen Imaging Data Radiologist's Impression: Chest X-Ray 09/16/21 09:44 XR chest 1V portable CLINICAL HISTORY: SEPSIS COMPARISON STUDY: Chest radiograph January 09, 2021. FINDINGS: Emphysema is noted. Lungs are clear. There is no pneumothorax or pleural effusion. Cardiac size is normal. Mediastinal contours are normal. There is no evidence for pulmonary edema. Slight asymmetric increased attenuation of the left lung is likely artifactual. This is unchanged. IMPRESSION: No acute cardiopulmonary findings. Emphysema. ACT 112: Negative or not required by law. Electronically signed by: Tommie Keller M.D. 09/16/2021 11:[address] 09/16/21 09:[address] DOSE: 823.94 mGycm HISTORY: Altered mental status. Confusion. TECHNIQUE: Multiaxial CT images of the head were performed without the use of intravenous contrast. Automated exposure control was utilized for this study. A dose lowering technique was utilized adhering to the principles of ALARA. Comparison: None. Findings: The paranasal sinuses and mastoid air cells are clear. The calvarium and skull base are intact. There is no mass, hematoma, midline shift, acute infarct. White matter hypodensity is nonspecific but suggestive of microvascular ischemic change. The ventricles and sulci demonstrate mild age-related involut ional changes. Impression: No acute intracranial abnormality. Atrophy and microvascular ischemic changes. ACT 112: Negative or not required by law. Electronically signed by: Joel Guevara M.D. 09/16/2021 12:37 PM Chest X-Ray 09/16/21 11:29 XR chest 1V portable CLINICAL HISTORY: s/p ij central line COMPARISON STUDY: Chest radiograph performed earlier today. FINDINGS: There is no pneumothorax following placement of a right internal jugular central line. Catheter tip projects over the distal SVC. No pneumothorax or pleural effusion is noted. There is no evidence for pulmonary edema. There are suspected underlying emphysema. Cardiac size is normal. Mediastinal contours are unremarkable. Right neck vascular calcifications are incidentally noted. IMPRESSION: No pneumothorax following placement of a right internal jugular central line. Catheter tip projects over the distal SVC. ACT 112: Negative or not required by law. Electronically signed by: Tommie Keller M.D. 09/16/2021 12:08 PM ECG Data Attestation: I personally reviewed and interpreted this ECG as follows: Additional Comments: Twelve-lead EKG: Per my interpretation there is a normal sinus rhythm at a rate of 73. No ST elevations. No PVCs. Normal QTC. MDM Narrative Patient presents to the ED after being found on the floor at home. He had reportedly fallen over the past several days. Yesterday his neighbor helped him up. It is unclear how long he has been on the floor. The patient was found to be hypotensive for EMS with blood pressure of 70/26 and 62/32. He does use 4 L of oxygen at home for his COPD. The patient has multiple bruises and pressure sores on his body likely from laying on the floor for prolonged period of time. His mouth is extremely dry. He does report some shortness of breath and generalized pain. His extremities are cool. EMS provided 800 cc of normal saline bolus of warm fluid and his blood pressure did improve with that. His twelve-lead EKG shows a normal sinus rhythm at a rate of 73 without acute ischemic changes or arrhythmia. X-ray does not show an obvious pneumonia. The patient's white blood cell count is 34,000. Procalcitonin level 7.49. Lactic acid was 1.0. Total CK is 3395. Urinalysis is suggestive of infection. Potassium is 7.4. BUN is 89 and creatinine is 1.88. Troponin is 0.29. ABG shows a pH of 7.22 with a PCO2 of 70 and PaO2 of 219 on 4 L. The patient was given 800 cc normal saline by EMS. He had a total of 2.5 L of IV normal saline (>30cc/kg). The patient was given IV Levaquin and IV vancomycin empirically He was given Kayexalate rectally. Was also given an amp of sodium bicarb, IV glucose, IV insulin, IV calcium and a DuoNeb treatment for the hyperkalemia. The patient had improvement of his blood pressure after the norepinephrine was initiated. Right IJ central line was placed for administration of the norepinephrine. CT scan of the brain did not show acute process/trauma. The patient will be seen by the hospitalist for further inpatient evaluation and care. Impression & Plan Fall, Sepsis, Acute renal failure due to rhabdomyolysis, Acute hyperkalemia, Elevated troponin, UTI (urinary tract infection), Septic shock, Acute dehydration Discharge Plan Visit Data Chief Complaint: Altered Mental Status Stated Complaint: CONFUSION, AMS, FALLS, HYPOTENSION ED Provider: Michael Haines Discharge Problem: Fall, Sepsis, Acute renal failure due to rhabdomyolysis, Acute hyperkalemia, Elevated troponin, UTI (urinary tract infection), Septic shock, Acute dehydration Patient Disposition: Being Evaluated by Hospitalist Forms Stand Alone Forms: [facility] [place] [employer] Prescriptions Prescriptions: No Action budesonide-formoterol 160-4.5 mcg/actuation HFA aerosol inhaler 2 inh inhalation BID Qty: 1 RF: 5 lisinopril-hydrochlorothiazide 10-12.5 mg tablet 1 tab PO QAM RF: 0 hydrocodone-acetaminophen 5-325 mg tablet 1 tab PO Q8H PRN (Reason: pain) RF: 0 albuterol sulfate 90 mcg/actuation HFA aerosol inhaler 2 puff inhalation Q6H PRN (Reason: Shortness Of Breath Or Wheezing) Qty: 18 RF: 3 Combivent Respimat 20-100 mcg/actuation mist See Rx Instructions .ROUTE .COMPLEX Qty: 12 RF: 3 simvastatin 80 mg Tablet 40 mg PO HS RF: 0 cholecalciferol (vitamin D3) [Vitamin D3] 25 mcg (1,000 unit) Tablet 25 mcg PO QAM RF: 0 tiotropium bromide 2.5 mcg/actuation Mist 2 puff INHALATION DAILY PRN (Reason: COPD) RF: 0 levothyroxine [Synthroid] 112 mcg Tablet 112 mcg PO DAILYBB Qty: 30 RF: 0 Referrals Referrals: Joseph Carrillo III, MD [Primary Care Provider] -
[2021-09-16 10:33] LABS: iSTAT Ionized Calcium 0.93 mmol/l (1.12-1.32); iSTAT Potassium 7.3 mmol/L (3.3-5.0)
[2021-09-16] MEDS ORDERED: STAT IV STA (10:37)
[2021-09-16] MEDS ORDERED: CALCIUM GLUCONATE 10% 1,000 MG in DEXTROSE 5% 50 ML IV STA (10:37)
[2021-09-16] MEDS ORDERED: SODIUM BICARBONATE 8.4% 150 MEQ in DEXTROSE 5% 1,000 ML IV STA (10:37)
[2021-09-16] MEDS ORDERED: ALBUTEROL 0.5% NEB SOLN 2.5 MG/0.5 ML VIAL NEB STA (10:37)
[2021-09-16] MEDS ORDERED: DEXTROSE 50% 50 ML SYRINGE IV STA (10:37)
[2021-09-16] MEDS ORDERED: INSULIN HUMAN REGULAR PER UNIT 10 UNITS in SYRINGE 9.9 ML IV STA (10:37)
[2021-09-16] MEDS ORDERED: SODIUM POLYSTYRENE SULFONATE 15G/60ML SUSP PR STA (10:37)
[2021-09-16] MEDS ORDERED: VANCOMYCIN HCL 1,500 MG in SODIUM CHLORIDE 0.9% 500 ML IV ONE (10:45)
[2021-09-16] MEDS ORDERED: SODIUM CHLORIDE 0.9% 1000ML 1,000 ML IV SCH (10:45)
[2021-09-16 10:49] LABS: Base Excess ABG -1.7 mEq/L (-9-1.8); HCO3 ABG 28 mmol/L (19-24); Oxygen Saturation ABG 99.5 % (90-95); PCO2 ABG 70 mmHg (35-46); PO2 ABG 219 mmHg (80-95); pH ABG 7.22 (7.35-7.45)
[2021-09-16 10:50] LABS: Mean Corpuscular Hgb Conc 33.3 g/dL (32-36); Mean Corpuscular Volume 98.9 fL (80-100); Mean Platelet Volume 9.9 fL (7.4-10.4); Platelet Count 291 K/uL (130-400); RDW Standard Deviation 49.9 fL (36.4-46.3); Red Blood Count 4.55 M/uL (4.7-6.1); White Blood Count 34.34 K/uL (4.8-10.8)
[2021-09-16 10:51] LABS: Allen Test Pos (Pos)
[2021-09-16 10:53] LABS: Partial Thromboplastin Ratio 1.1; Partial Thromboplastin Time 29.1 Seconds (21.0-31.0)
--- NOTE | 2021-09-16 11:01 | XRay Report ---
XR chest 1V portable CLINICAL HISTORY: SEPSIS COMPARISON STUDY: Chest radiograph January 09, 2021. FINDINGS: Emphysema is noted. Lungs are clear. There is no pneumothorax or pleural effusion. Cardiac size is normal. Mediastinal contours are normal. There is no evidence for pulmonary edema. Slight asy mmetric increased attenuation of the left lung is likely artifactual. This is unchanged. IMPRESSION: No acute cardiopulmonary findings. Emphysema. ACT 112: Negative or not required by law. Electronically signed by: Tommie Keller M.D. 09/16/2021 11:00 AM
[2021-09-16] MEDS ORDERED: NovoLIN-R INSULIN PER UNIT CHARGE ONE (11:08)
[2021-09-16 11:20] LABS: Basophils # (auto) 0.02 K/uL (0-0.2); Basophils % (auto) 0.1 %; Immature Granulocytes # (auto) 1.74 K/uL (0.00-0.02); Immature Granulocytes % (auto) 5.1 %; Lymphocytes # (auto) 0.91 K/uL (1.2-3.4); Lymphocytes % (auto) 2.6 %; Monocytes # (auto) 3.03 K/uL (0.11-0.59); Monocytes % (auto) 8.8 %; Neutrophils # (auto) 28.64 K/uL (1.4-6.5); Neutrophils % (auto) 83.4 %
[2021-09-16 11:35] LABS: Creatine Kinase 3395 U/L (30-223)
[2021-09-16] MEDS ORDERED: Standard Conc 16mcg/mL; 8mg in 500mL IV SCH (11:45)
[2021-09-16 11:59] LABS: Alanine Aminotransferase 59 U/L (7-52); Albumin Globulin Ratio 1.3 (0.9-2); Albumin Level 3.3 gm/dl (3.4-5.0); Alkaline Phosphatase 83 U/L (34-104); Anion Gap 14 (3-11); Aspartate Aminotransferase 175 U/L (13-39); BUN Creatinine Ratio 47.3 (10-20); Bilirubin,Total 0.7 mg/dl (0.2-1.0); Blood Urea Nitrogen 89 mg/dl (6-23); Calcium 8.4 mg/dl (8.5-10.1); Carbon Dioxide 27 mmol/L (21-32); Chloride 97 mmol/L (98-107); Est GFR (African American) 37.4 ml/min; Est GFR (Non-African American) 32.3 ml/min; Globulin 2.5 gm/dl (2.5-4.0); Glucose 110 mg/dl (70-99(Fasting)); Magnesium 2.6 mg/dl (1.7-2.4); Sodium 138 mmol/L (136-145); Total Protein 5.8 gm/dl (6.0-8.3); Troponin I 0.29 ng/ml (0-0.04)
[2021-09-16 12:00] LABS: Potassium 7.4 mmol/L (3.5-5.1)
--- NOTE | 2021-09-16 12:10 | XRay Report ---
XR chest 1V portable CLINICAL HISTORY: s/p ij central line COMPARISON STUDY: Chest radiograph performed earlier today. FINDINGS: There is no pneumothorax following placement of a right internal jugular central line. Cath eter tip projects over the distal SVC. No pneumothorax or pleural effusion is noted. There is no evid ence for pulmonary edema. There are suspected underlying emphysema. Cardiac size is normal. Mediastin al contours are unremarkable. Right neck vascular calcifications are incidentally noted. IMPRESSION: No pneumothorax following placement of a right internal jugular central line. Catheter t ip projects over the distal SVC. ACT 112: Negative or not required by law. Electronically signed by: Tommie Keller M.D. 09/16/2021 12:08 PM
--- NOTE | 2021-09-16 12:38 | CT Scan Report ---
HEAD CT NONCONTRAST CT DOSE: 823.94 mGycm HISTORY: Altered mental status. Confusion. TECHNIQUE: Multiaxial CT images of the head were performed without the use of intravenous contrast. A utomated exposure control was utilized for this study. A dose lowering technique was utilized adheri ng to the principles of ALARA. Comparison: None. Findings: The paranasal sinuses and mastoid air cells are clear. The calvarium and skull base are int act. There is no mass, hematoma, midline shift, acute infarct. White matter hypodensity is nonspecifi c but suggestive of microvascular ischemic change. The ventricles and sulci demonstrate mild age-rela onur involutional changes. Impression: No acute intracranial abnormality. Atrophy and microvascular ischemic changes. ACT 112: Negative or not required by law. Electronically signed by: Joel Guevara M.D. 09/16/2021 12:37 PM
[2021-09-16 12:59] LABS: Adenovirus PCR Not Detected (NotDetected); Bordetella parapertussis PCR Not Detected (NotDetected); Bordetella pertussis PCR Not Detected (NotDetected); Chlamydia pneumoniae PCR Not Detected (NotDetected); Coronavirus 229E PCR Not Detected (NotDetected); Coronavirus CoV-2 (COVID19)PCR Not Detected (NotDetected); Coronavirus HKU1 PCR Not Detected (NotDetected); Coronavirus NL63 PCR Not Detected (NotDetected); Coronavirus OC43PCR Not Detected (NotDetected); Human Metapneumovirus PCR Not Detected (NotDetected); Influenza A PCR Not Detected (NotDetected); Influenza B PCR Not Detected (NotDetected); Mycoplasma pneumoniae PCR Not Detected (NotDetected); Parainfluenza Virus 1 PCR Not Detected (NotDetected); Parainfluenza Virus 2 PCR Not Detected (NotDetected); Parainfluenza Virus 3 PCR Not Detected (NotDetected); Parainfluenza Virus 4 PCR Not Detected (NotDetected); Respiratory Syncytial VirusPCR Not Detected (NotDetected); Rhinovirus/Enterovirus PCR Not Detected (NotDetected)
--- NOTE | 2021-09-16 13:21 | History & Physical Report ---
Date of Service September 16, 2021 Assessment & Plan (1) Septic shock: Plan: Septic shock secondary to urinary source with evidence of organ dysfunction - Continue with volume resuscitation to maintain MAPS >65, UO 0.5ml/kg/hr, - Continue with Levophed to keep MAPS >65- wean as able - Continue with Vancomycin, Aztreonam added, IV Flagyl unavailable - Await cultures - PCT 7.49- follow q72 or per numerologist (2) ARF (acute renal failure): Plan: Multiple causes to include septic shock, hypovolemia, rhabdomyolysis - Renal ultrasound to assess for obstructive Pathology/renal stones - Urine electrolytes - Patient is not anuric at this time - Continue with isotonic bicarb drip- mild improvment with resuscitation - Continue to kaliureses as able by maintaining adequate UO - Support with IVF and vasopressors to maintain MAPS - Does have 4mm non-obstructing stones- follow (3) Metabolic acidosis: Plan: As above - Mixed Respiratory/Metabolic acidsosis - treat above (4) Hyperkalemia: Plan: Resoloving hopeful to continue - Continue with isotonic HCO3 infusion - As long as he remains making urine should continue to decline or stablize - Follow renal function - support acid base status as we are able (5) Rhabdomyolysis: Plan: CK 3395 with right sided tissue injury/pressure injury - IVF as above- continue with isotonic HCo3 at 250ml/hr - Follow renal function and acidosis (6) Encephalopathy: Plan: Metabolic/hypercapnic - Continue with treating reversible causes - BiPAP for hypercapnia - Follow- CT head without acute process - If reversible causes treated without improvement consider further imaging (7) Elevated troponin: Plan: Likely demand from shock and hypovolemia - Trend troponin - daily ECG (8) UTI (urinary tract infection): Plan: As above (9) Constipation: Plan: Large stool burden noted on KUB - Will need disimpaction and likely tap water enema to loosen (10) COPD (chronic obstructive pulmonary disease): Plan: Severe history on home O2 - CO2 increasing- BiPAP hopeful to reverse - Continue scheduled Combivent nebs - Pulmicort nebs BID - Spiriva if he awakes enough to use- unlikely at this time to be beneficial - Consider IV Steroid (11) Hypercholesteremia: Plan: Continue statin (12) Hypothyroidism: Plan: Change Synthroid to IV - 60 mcg while NPO (13) Acute and chronic respiratory failure with hypercapnia: (14) Acute respiratory failure with hypoxia and hypercapnia: History of Present Illness Chief Complaint: altered mental status, found on the floor at home Primary Care Provider: Joseph Carrillo MD 81 YOM with past medical history of: Severe COPD on home oxygen, HTN, HLD, Hypothyroidism. Patient comes to the emergency room today via EMS secondary to being found on the ground at home this morning by family. Reportedly the patient has fallen or found on the ground over the past 3 days and assisted back to chair or bed. Today he was noted to be less responsive and EMS was called. He was noted to be hypotensive and hypoxic during transport. In the EMD the patient had routine labs drawn, blood culture, UA with culture, ABG, CXR, ECG, CT of head performed. The patient labs were noted for acidsois, elevated BUN and REPLENISHMENT ASSOCIATE with resulting hyperkalemia to 7. He was also noted to have elevated WBC count in the 30s, was hypothermic with elevated PCT. His urine does have bacteria in it as well as Nit/Leuk, RBC, Blood, and hyaline casts. His CK level was also elevated at 3395. Patient was resuscitated with 0.9% saline x 1 liter and then transitioned to isotonic HCO3 drip for his hyperkalemia/rhabd o/acidosis. He was give Kayexalate as well as calcium gluconate for his hyperkalemia. A central line was placed and he was initiated on Levophed drip at 0.05mcg/kg/min which has maintained his MAPS >70. He was started on Vancomycin and Levaquin in the EMD which he received dose of each prior to admission. Hospitalist service was consulted for admission. Overall the patient is cachetic, elderly and frail, he has multiple areas of excoriation and bruising noted to his right side, he remains hypothermic despite warm blankets, gee hugger, and warming lights. Will recheck BMP and ionized c alcium and VBG now to guide further therapy. He is in septic shock complicated by SHYAM/ATN, he is making urine at this time which is reassuring. He also has evidence of rhabdomyolysis with an elevated gap acidosis. His HCO3 is 28 and PH is 7.22. His gap is now down to 8, and his K is down to 4.3 following resuscitative efforts. He is encephalopathic with minimal response. Will admit to ICU for septic shock, SHYAM, Hypovolemia, acidosis and wean down pressures as able. Continue with ABX therapy and await culture results. I have spent 20 minutes discussing the case and the wishes of the patient and family for ongoing care. We discussed his current status and likely causes to include but not limited to- infection/septic shock/hypothermiakidney injury/COPD/hyperkalemia/acid base disturbances. We also reviewed his current therapies to address current threats to his life. Family (sone) decided with his dad's wishes and quality of life that he would not want to be intubated or placed on mechanical ventilation, if his heart were to stop or go into a lethal rhythm that he would not want to have CPR or electrical therapy. He would like to continue current level of care and if further organ failure or was imminent that he would like to make him comfort care at that time and stop further therapies. Patient COVID/FLU/and respiratory viral panel all: NEGATIVE Allergies Allergy/AdvReac Type Severity Reaction Status Date / Time amoxicillin [From Augmentin] Allergy Severe Verified 01/09/21 16:22 clavulanic acid Allergy Severe Verified 01/09/21 16:22 [From Augmentin] tetanus toxoid, adsorbed Allergy Intermediate INJECTION Unverified 01/09/21 16:22 SITE SWELLING Home Medications Medication Instructions Recorded Confirmed Type cholecalciferol (vitamin D3) 25 25 mcg PO QAM 01/09/21 09/16/21 History mcg (1,000 unit) tablet (Vitamin D3) simvastatin 80 mg tablet 40 mg PO HS 01/09/21 09/16/21 History tiotropium bromide 2.5 2 puff INHALATION DAILY PRN 01/09/21 09/16/21 History mcg/actuation mist for inhalation levothyroxine 112 mcg tablet 112 mcg PO DAILYBB #30 tab 01/11/21 09/16/21 Rx (Synthroid) albuterol sulfate 90 mcg/actuation 2 puff INHALATION Q6H PRN #18 g 08/28/21 09/16/21 Rx aerosol inhaler ipratropium 20 mcg-albuterol 100 See Rx Instructions .ROUTE 08/28/21 09/16/21 Rx mcg/actuation mist for inhalation .COMPLEX #12 milliliter (Combivent Respimat) budesonide-formoterol HFA 160 2 inh INHALATION BID #1 g 09/08/21 09/16/21 Rx mcg-4.5 mcg/actuation aerosol inhaler Past Med/Surg History Medical History (Updated 09/18/21 @ 12:45 by Jordan Ken) Acute and chronic respiratory failure with hypercapnia Carotid arterial disease Chronic respiratory failure with hypoxia COPD (chronic obstructive pulmonary disease) External hemorrhoid Goals of care, counseling/discussion Hypercholesteremia Hypertension Hypothyroidism Rectal bleeding Surgical History History of prostate surgery Status post carotid surgery left CEA Family History Family/Other Diabetes Breast cancer Hypertension Social History Smoking Status: Unknown if ever smoked Tobacco Type: Cigarettes packs per day: 0.5; Cigarettes Per Day: 10; Second Hand Exposure: Yes; Hx Alcohol Use: No Hx Substance Use: No Preferred Language: Nepalese Communication Ability: Effective Industrial Hygienist Required: No Beliefs That Will Affect Care: None marital status: Single Current Living Situation: Alone current occupational status: retired Feels Safe at Home: Yes Childhood Exposure to Second-Hand Smoke: Yes Dental Care, Regularly: No Physical Activity Frequency: Does not Exercise Assistive Devices: Walker Review of Systems Review of Systems: REVIEW OF SYSTEMS: Unable to obtain secondary to encephalopathy Physical Exam Physical Exam: PHYSICAL EXAM: General: encephalopathic/obtunded Head: Normocephalic, atraumatic ENT: PERRLA, mucous membranes very dry Neuro: GCS 10 with withdraw to pain, incomprehensible sounds, and eye opening, although does not respond to voice Chest: equal rise and fall of the chest, no accessory muscle use, no heaves or thirlls, Clear to auscultation, on room air, Cardiac: Regular rate and rhythm, telemetry reviewed-NSR, skin cool and clammy with mottling to his feet bilaterally, pulses weak GI: NABS x 4 quadrants, soft, nontender to palpation, no rebound, guarding or tenderness : espinoza to gravity draining hector dark urine Extremities:multiple open areas on right arm, right leg, right hip, bruises noted to left arm Skin: as above with excoriation to buttocks. Results & Data Results & Data ([facility]) Vital Signs (Past 12 Hours) Vital Signs Temp Pulse Pulse Resp BP Pulse Ox 09/16/21 13:15 35.2 C L 67 35 H 132/60 95 09/16/21 13:10 35.2 C L 75 37 H 131/52 L 94 09/16/21 13:05 35.1 C L 36 H 136/53 L 93 09/16/21 13:00 35.0 C L 37 H 139/51 L 93 09/16/21 12:55 35.0 C L 76 33 H 146/48 H 96 09/16/21 12:50 34.9 C L 74 26 H 136/52 L 96 09/16/21 12:45 34.8 C L 30 H 139/52 L 98 09/16/21 12:40 34.8 C L 35 H 145/43 H 98 09/16/21 12:35 34.8 C L 24 139/36 L 100 09/16/21 12:34 34.8 C L 24 142/43 H 100 09/16/21 12:05 34.7 C L 26 H 133/50 L 100 09/16/21 12:00 34.7 C L 75 35 H 123/55 L 99 09/16/21 11:55 34.7 C L 76 26 H 140/47 L 99 09/16/21 11:49 34.7 C L 78 24 127/54 L 100 09/16/21 11:47 74 22 100 09/16/21 11:00 34.8 C L 09/16/21 10:04 75 22 153/41 H Laboratory Results Abnormal lab results 09/16/21 09/16/21 09/16/21 Range/Units 10:21 10:29 10:29 WBC (4.8-10.8) K/uL RBC (4.7-6.1) M/uL RDW Std Deviation (36.4-46.3) fL Neut # (Auto) (1.4-6.5) K/uL Lymph # (Auto) (1.2-3.4) K/uL [place] # (Auto) (0.11-0.59) K/uL Immature Gran # (Auto) (0.00-0.02) K/uL ABG pH (7.35-7.45) ABG pCO2 (35-46) mmHg ABG pO2 (80-95) mmHg ABG HCO3 (19-24) mmol/L ABG O2 Saturation (90-95) % VBG pH (7.36-7.41) VBG pCO2 (38-50) mmHg POC Sodium 134 L (135-144) mmol/L POC Potassium 7.3 H* (3.3-5.0) mmol/L Potassium 7.4 H* (3.5-5.1) mmol/L POC Chloride 93 L (101-112) mmol/L Chloride 97 L (98-107) mmol/L Anion Gap 14 H (3-11) POC BUN 103 H* (7-18) mg/dl BUN 89 H (6-23) mg/dl Creatinine 1.88 H (0.6-1.4) mg/dl POC Creatinine 3.0 H (0.6-1.3) mg/dl BUN/Creatinine Ratio 47.3 H (10-20) Glucose 110 H (70-99(Fasting)) mg/dl Calcium 8.4 L (8.5-10.1) mg/dl POC Ioniz Calcium Mylene 0.93 L (1.12-1.32) mmol/l Ionized Calcium (1.12-1.32) mmol/L Magnesium 2.6 H (1.7-2.4) mg/dl AST 175 H (13-39) U/L ALT 59 H (7-52) U/L Total Creatine Kinase 3395 H (30-223) U/L Troponin I 0.29 H* (0-0.04) ng/ml Total Protein 5.8 L (6.0-8.3) gm/dl Albumin 3.3 L (3.4-5.0) gm/dl Procalcitonin 7.49 H (0-0.5) ng/ml Urine Appearance (Clear) Urine Protein (Negative) Urine Ketones (Negative) Urine Blood (Negative) Urine Nitrite (Negative) Urine Bilirubin (Negative) Ur Leukocyte Esterase (Negative) Urine WBC (Auto) (0-5) /hpf Urine RBC (Auto) (0-4) /hpf U Hyaline Cast (Auto) (0-5) /lpf Urine Bacteria (Auto) (Negative) 09/16/21 09/16/21 09/16/21 Range/Units 10:29 10:30 11:00 WBC 34.34 H* (4.8-10.8) K/uL RBC 4.55 L (4.7-6.1) M/uL RDW Std Deviation 49.9 H (36.4-46.3) fL Neut # (Auto) 28.64 H (1.4-6.5) K/uL Lymph # (Auto) 0.91 L (1.2-3.4) K/uL [place] # (Auto) 3.03 H (0.11-0.59) K/uL Immature Gran # (Auto) 1.74 H (0.00-0.02) K/uL ABG pH 7.22 L (7.35-7.45) ABG pCO2 70 H (35-46) mmHg ABG pO2 219 H (80-95) mmHg ABG HCO3 28 H (19-24) mmol/L ABG O2 Saturation 99.5 H (90-95) % VBG pH (7.36-7.41) VBG pCO2 (38-50) mmHg POC Sodium (135-144) mmol/L POC Potassium (3.3-5.0) mmol/L Potassium (3.5-5.1) mmol/L POC Chloride (101-112) mmol/L Chloride (98-107) mmol/L Anion Gap (3-11) POC BUN (7-18) mg/dl BUN (6-23) mg/dl Creatinine (0.6-1.4) mg/dl POC Creatinine (0.6-1.3) mg/dl BUN/Creatinine Ratio (10-20) Glucose (70-99(Fasting)) mg/dl Calcium (8.5-10.1) mg/dl POC Ioniz Calcium Mylene (1.12-1.32) mmol/l Ionized Calcium (1.12-1.32) mmol/L Magnesium (1.7-2.4) mg/dl AST (13-39) U/L ALT (7-52) U/L Total Creatine Kinase (30-223) U/L Troponin I (0-0.04) ng/ml Total Protein (6.0-8.3) gm/dl Albumin (3.4-5.0) gm/dl Procalcitonin (0-0.5) ng/ml Urine Appearance Cloudy A (Clear) Urine Protein 1+ H (Negative) Urine Ketones Trace H (Negative) Urine Blood 3+ H (Negative) Urine Nitrite Positive A (Negative) Urine Bilirubin 1+ H (Negative) Ur Leukocyte Esterase 1+ H (Negative) Urine WBC (Auto) >30 H (0-5) /hpf Urine RBC (Auto) 10-30 H (0-4) /hpf U Hyaline Cast (Auto) 10-30 H (0-5) /lpf Urine Bacteria (Auto) 2+ H (Negative) 09/16/21 09/16/21 09/16/21 Range/Units 12:52 13:50 13:50 WBC (4.8-10.8) K/uL RBC (4.7-6.1) M/uL RDW Std Deviation (36.4-46.3) fL Neut # (Auto) (1.4-6.5) K/uL Lymph # (Auto) (1.2-3.4) K/uL [place] # (Auto) (0.11-0.59) K/uL Immature Gran # (Auto) (0.00-0.02) K/uL ABG pH (7.35-7.45) ABG pCO2 (35-46) mmHg ABG pO2 (80-95) mmHg ABG HCO3 (19-24) mmol/L ABG O2 Saturation (90-95) % VBG pH 7.16 L (7.36-7.41) VBG pCO2 90 H (38-50) mmHg POC Sodium (135-144) mmol/L POC Potassium (3.3-5.0) mmol/L Potassium (3.5-5.1) mmol/L POC Chloride (101-112) mmol/L Chloride (98-107) mmol/L Anion Gap (3-11) POC BUN (7-18) mg/dl BUN 82 H (6-23) mg/dl Creatinine 1.61 H (0.6-1.4) mg/dl POC Creatinine (0.6-1.3) mg/dl BUN/Creatinine Ratio 50.9 H (10-20) Glucose 224 H (70-99(Fasting)) mg/dl Calcium 7.5 L (8.5-10.1) mg/dl POC Ioniz Calcium Mylene (1.12-1.32) mmol/l Ionized Calcium 1.02 L (1.12-1.32) mmol/L Magnesium (1.7-2.4) mg/dl AST (13-39) U/L ALT (7-52) U/L Total Creatine Kinase (30-223) U/L Troponin I (0-0.04) ng/ml Total Protein (6.0-8.3) gm/dl Albumin (3.4-5.0) gm/dl Procalcitonin (0-0.5) ng/ml Urine Appearance (Clear) Urine Protein (Negative) Urine Ketones (Negative) Urine Blood (Negative) Urine Nitrite (Negative) Urine Bilirubin (Negative) Ur Leukocyte Esterase (Negative) Urine WBC (Auto) (0-5) /hpf Urine RBC (Auto) (0-4) /hpf U Hyaline Cast (Auto) (0-5) /lpf Urine Bacteria (Auto) (Negative) Diagnostic Findings Chest X-Ray 09/16/21 09:44 XR chest 1V portable CLINICAL HISTORY: SEPSIS COMPARISON STUDY: Chest radiograph January 09, 2021. FINDINGS: Emphysema is noted. Lungs are clear. There is no pneumothorax or pleural effusion. Cardiac size is normal. Mediastinal contours are normal. There is no evidence for pulmonary edema. Slight asymmetric increased attenuation of the left lung is likely artifactual. This is unchanged. IMPRESSION: No acute cardiopulmonary findings. Emphysema. ACT 112: Negative or not required by law. Electronically signed by: Tommie Keller M.D. 09/16/2021 11:[address] 09/16/21 09:[address] DOSE: 823.94 mGycm HISTORY: Altered mental status. Confusion. TECHNIQUE: Multiaxial CT images of the head were performed without the use of intravenous contrast. Automated exposure control was utilized for this study. A dose lowering technique was utilized adhering to the principles of ALARA. Comparison: None. Findings: The paranasal sinuses and mastoid air cells are clear. The calvarium and skull base are intact. There is no mass, hematoma, midline shift, acute infarct. White matter hypodensity is nonspecific but suggestive of microvascular ischemic change. The ventricles and sulci demonstrate mild age-related involutional changes. Impression: No acute intracranial abnormality. Atrophy and microvascular ischemic changes. ACT 112: Negative or not required by law. Electronically signed by: Joel Guevara M.D. 09/16/2021 12:37 PM Chest X-Ray 09/16/21 11:29 XR chest 1V portable CLINICAL HISTORY: s/p ij central line COMPARISON STUDY: Chest radiograph performed earlier today. FINDINGS: There is no pneumothorax following placement of a right internal jugular central line. Catheter tip projects over the distal SVC. No pneumothorax or pleural effusion is noted. There is no evidence for pulmonary edema. There a re suspected underlying emphysema. Cardiac size is normal. Mediastinal contours are unremarkable. Right neck vascular calcifications are incidentally noted. IMPRESSION: No pneumothorax following placement of a right internal jugular central line. Catheter tip projects over the distal SVC. ACT 112: Negative or not required by law. Electronically signed by: Tommie Keller M.D. 09/16/2021 12:08 PM Hip/Pelvis X-Ray 09/16/21 13:20 XR hip RT 2V w pelvis CLINICAL HISTORY: evaluate for fracture TECHNIQUE: 2 views of the right hip and single frontal view of the pelvis were obtained. Comparison: None available at the time of this dictation. FINDINGS: There is no evidence of an acute fracture. The alignment is anatomic. Degenerative changes are seen. These are most pronounced in the left hip joint. Vascular calcifications are noted. Incidentally noted there is a large stool burden in the rectum. IMPRESSION: 1. No evidence of acute osseous injury. 2. Large stool burden in the rectum. ACT 112: Negative or not required by law. Electronically signed by: Alen De Leon M.D. 09/16/2021 1:58 PM KUB X-Ray 09/16/21 13:23 KUB CLINICAL HISTORY: Evaluate for renal stone. COMPARISON STUDY: None. FINDINGS: Note is made of a large amount of stool within the rectum with a stool ball that measures approximately 13.7 x 12.4 cm. There is a moderate amount stool within the colon. There are possible small bilateral renal calculi which measure up to 4 mm. There is no convincing evidence for a bowel obstruction. Ex tensive vascular calcification is incidentally noted. IMPRESSION: 1. Large amount of stool within the rectum with a stool ball that measures approximately 13.7 x 12.4 cm. The findings suggest fecal impaction. 2. No evidence for a bowel obstruction. 3. Possible small bilateral renal calculi. ACT 112: Negative or not required by law. Electronically signed by: Tommie Keller M.D. 09/16/2021 1:49 PM Medications Administered Home Medications cholecalciferol (vitamin D3) 25 mcg (1,000 unit) tablet (Vitamin D3) 25 mcg PO QAM 01/09/21 [History Confirmed 01/09/21] simvastatin 80 mg tablet 40 mg PO HS 01/09/21 [History Confirmed 01/09/21] tiotropium bromide 2.5 mcg/actuation mist for inhalation 2 puff INHALATION DAILY PRN 01/09/21 [History Confirmed 01/09/21] levothyroxine 112 mcg tablet (Synthroid) 112 mcg PO DAILYBB #30 tab 01/11/21 [Rx] albuterol sulfate 90 mcg/actuation aerosol inhaler 2 puff INHALATION Q6H PRN #18 g 08/28/21 [Rx Confirmed 08/28/21] ipratropium 20 mcg-albuterol 100 mcg/actuation mist for inhalation (Combivent Respimat) See Rx Instructions .ROUTE .COMPLEX #12 milliliter 08/28/21 [Rx Confirmed 08/28/21] budesonide-formoterol HFA 160 mcg-4.5 mcg/actuation aerosol inhaler 2 inh INHALATION BID #1 g 09/08/21 [Rx] Active Medications Sodium Bicarbonate 150 meq/ (Dextrose) 1,150 mls @ 290 mls/hr IV .Q3H58M STA Stop: 09/16/21 14:34 Last Admin: 09/16/21 11:39 Dose: 290 mls/hr Documented by: Norepinephrine Bitartrate (Levophed/D5w) 8 mg in 508 mls @ 12.668 mls/hr IV .Q24H JACQUELINE; Protocol Stop: 10/16/21 11:44 Last Admin: 09/16/21 11:41 Dose: 0.05 mcg/kg/min, 12.7 mls/hr Documented by: Aztreonam 2,000 mg/ Dextrose 110 mls @ 100 mls/hr IV Q12H JACQUELINE; Protocol Stop: 09/27/21 02:59 Aztreonam 2,000 mg/ Dextrose 110 mls @ 100 mls/hr IV ONE ONE; Protocol Stop: 09/16/21 16:05 Miscellaneous Information (Vancomycin Consult Active) 1 ea N/A UD PRN PRN Reason: Consult Stop: 10/16/21 09:42 ECG Additional Comments: Normal sinus rhythm Anteroseptal infarct (cited on or before 06-DEC-2015) Abnormal ECG When compared with ECG of 09-JAN-2021 15:03, ST now depressed in Inferior leads Code Status & VTE Plan Code Status CODE: DNR/DNI VTE: SCDs, Heparin 5000 sub q q12 VTE Prophylaxis Plan VTE Prophylaxis will be ordered: Yes Critical Care Time Critical Care Time: Yes Supervising Physician Co-Signing Physician Notes Attending Attestation & Admit Note: Pt seen/examined, chart reviewed, care plan d/w SHARI Loza. I agree w/ the scott components of his admission documentation. 81yo critically ill male found down at his home for uncertain length of time. Upon arrival to [facility] he was hypotensive, hypothermic, altered, hypoxic, and having increased work of breathing. Presentation c/w acute/chronic hypoxic/hypercapnic respiratory failure, septic shock likely 2nd to UTI, rhabdomyolysis 2nd to fall & laying on ground, ARF, and other issues listed in Mr Loza's note. During the ER stay we had to employ BIPAP due to worsening respiratory status in the face of his acidosis from the septic shock. ABG showed mixed met/resp acidosis with escalating pCO2. Family arrived - did make him a DNR/DNI. PMH/PSH/allergies/meds/soch/famhx - reviewed vitals - shock, hypoxic, hypothermic gen - looks toxic, thin/cachectic, tachypneic, altered/nearly obtunded mouth - MM dry eyes - asymmetric pupils, L is larger than R neck - no JVD heart - RRR, s1 s2 lungs - tachypneic, retractions, wheezes b/l abd - soft, no apparent tenderness, BS+ ext - mottled feet, pulses not palpable, cap refill 4+ seconds neuro - not moving any limb spontaneously labs reviewed imaging reviewed A/P: 1. septic shock 2nd presumed UTI - s/p copious IV fluids, now on pressors 2. rhabdomyolysis - IV fluids 3. acute renal failure - 2nd to #1, #2 4. metabolic encephalopathy - 2nd to #1, #5, #6 5. acute/chronic resp failure - acute component is due to respiratory compensation for severe metabolic acidosis 6. hypothermia 7. hyperkalemia - 2nd ARF While awaiting transfer to the ICU the patient's respiratory status worsened. NC switched to BIPAP. Phone call placed to pt's family who was en route by car. When family arrived additional discussion held with them regarding code status and whether to pursue aggressive measures. By the time patient arrived in ICU he was needing intubation for worsening respiratory status. Family elected to make patient comfort care/DNR/DNI rather than pursue ongoing aggressive measures. Patient ultimately a short time later - see note/summary. total critical care time about 100 minutes (65 minutes on admission by SHARI Villar; 15 minutes of my services; 20 additional minutes by Mr Loza for transitioning patient from ICU/aggressive care to comfort care) Jordan Ken MD PG Care Time/CCT Total # of Minutes Spent Total Time Spent with Patient: Total time spent is greater than 50% in coordination of care (as documented) at patient's floor/unit and/or counseling patient: Critical Care Time: Yes 100 minutes critical care time, this includes direct patient care, interpretation of labs and imaging, as well as bedside family discussion regarding current illness and goals of care See attending Attestation below Coding Level of Care Code None Diagnoses Septic shock A41.9; R65.21 ARF (acute renal failure) N17.9 Metabolic acidosis E87.2 Hyperkalemia E87.5 Elevated troponin R77.8 UTI (urinary tract infection) N39.0 COPD (chronic obstructive pulmonary disease) J43.8 COPD type: emphysema Emphysema type: other Hypercholesteremia E78.00 Hypothyroidism E03.9 Hypothyroidism type: unspecified Constipation K59.00 Encephalopathy G93.40 Rhabdomyolysis M62.82 Acute and chronic respiratory failure with hypercapnia J96.22 Acute respiratory failure with hypoxia and hypercapnia J96.01; J96.02 Additional Codes Critical Care Time - Critical Care Time: Yes ([id number]) Time Spent (min) 100 Comment critical care (1) Hypothyroidism Hypothyroidism type: unspecified Qualified Code(s): E03.9 - Hypothyroidism, unspecified (2) COPD (chronic obstructive pulmonary disease) COPD type: emphysema Emphysema type: other Qualified Code(s): J43.8 - Other emphysema
[2021-09-16 13:39] LABS: Anion Gap 8 (3-11); BUN Creatinine Ratio 50.9 (10-20); Blood Urea Nitrogen 82 mg/dl (6-23); Calcium 7.5 mg/dl (8.5-10.1); Carbon Dioxide 30 mmol/L (21-32); Chloride 100 mmol/L (98-107); Est GFR (African American) 45.2 ml/min; Glucose 224 mg/dl (70-99(Fasting)); Potassium 4.3 mmol/L (3.5-5.1); Sodium 138 mmol/L (136-145)
--- NOTE | 2021-09-16 13:51 | XRay Report ---
KUB CLINICAL HISTORY: Evaluate for renal stone. COMPARISON STUDY: None. FINDINGS: Note is made of a large amount of stool within the rectum with a stool ball that measures a pproximately 13.7 x 12.4 cm. There is a moderate amount stool within the colon. There are possible sm all bilateral renal calculi which measure up to 4 mm. There is no convincing evidence for a bowel obs truction. Extensive vascular calcification is incidentally noted. IMPRESSION: 1. Large amount of stool within the rectum with a stool ball that measures approximately 13.7 x 12.4 cm. The findings suggest fecal impaction. 2. No evidence for a bowel obstruction. 3. Possible small bilateral renal calculi. ACT 112: Negative or not required by law. Electronically signed by: Tommie Keller M.D. 09/16/2021 1:49 PM
--- NOTE | 2021-09-16 13:59 | XRay Report ---
XR hip RT 2V w pelvis CLINICAL HISTORY: evaluate for fracture TECHNIQUE: 2 views of the right hip and single frontal view of the pelvis were obtained. Comparison: None available at the time of this dictation. FINDINGS: There is no evidence of an acute fracture. The alignment is anatomic. Degenerative changes are seen. These are most pronounced in the left hip joint. Vascular calcifications are noted. Incidentally not ed there is a large stool burden in the rectum. IMPRESSION: 1. No evidence of acute osseous injury. 2. Large stool burden in the rectum. ACT 112: Negative or not required by law. Electronically signed by: Alen De Leon M.D. 09/16/2021 1:58 PM
[2021-09-16 14:06] LABS: Base Excess VBG 0.6 mEq/L; pH VBG 7.16 (7.36-7.41)
[2021-09-16] MEDS ORDERED: bisacodyL 10 MG SUPP PR STA (14:19)
[2021-09-16 14:46] LABS: Urine Potassium 101.1 mmol/L
[2021-09-16] MEDS ORDERED: AZTREONAM 2,000 MG in DEXTROSE 5% 100 ML IV ONE (15:00)
[2021-09-16] MEDS ORDERED: ALBUT/IPRATROP 3MG/0.5MG NEB 3 ML VIAL NEB SCH (15:23)
[2021-09-16] MEDS ORDERED: IPRATROPIUM BROMIDE/ALBUTEROL respimat INH INH SCH (15:23)
[2021-09-16] MEDS ORDERED: ICU PROTOCOL FOR HYPERGLYCEMIA PRN (15:23)
[2021-09-16] MEDS ORDERED: NON-FORMULARY MEDICATION (Tiotropium Bromide 2.5 mcg/actuation Mist) INH PRN (15:23)
[2021-09-16] MEDS ORDERED: bisacodyL 10 MG SUPP PR PRN (15:23)
[2021-09-16] MEDS ORDERED: VANCOMYCIN CONSULT ACTIVE PRN (15:23)
[2021-09-16 15:35] VITALS: TEMP 97.7
[2021-09-16] MEDS ORDERED: ONDANSETRON 4 MG OD TAB SL PRN (15:35)
[2021-09-16] MEDS ORDERED: ATROPINE SULFATE 1% OP SOLN 5 ML BTL SL PRN (15:35)
[2021-09-16] MEDS ORDERED: LORazepam 0.5 MG/1 ML VIAL IV PRN (15:35)
[2021-09-16] MEDS ORDERED: MoRPHine SULFATE 2 MG/ML CARP IV PRN (15:35)
[2021-09-16] MEDS ORDERED: ONDANSETRON INJ 2 MG/ML 2 ML VIAL IV PRN (15:35)
--- NOTE | 2021-09-16 15:42 | Critical Care Consultation ---
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 Neurologic: Patient is currently obtunded due to his hypercapnic respiratory failure and metabolic encephalopathy. Family wishes to proceed with comfort measures only and will plan to give the patient. Morphine and Ativan to help with comfort. Pulmonary: Acute hypercapnic respiratory failure. Patient's son noted that the patient did not want to be intubated or placed on mechanical ventilation in the event of a respiratory arrest or respiratory failure. We will abide by these wishes and focus on comfort measures at this time as this is likely a terminal event. VBG reviewed which demonstrates a PCO2 of 90 and a pH of 7.16 consistent with hypercapnic respiratory failure. Cardiovascular: We will discontinue vasopressor support per family wishes. Gastrointestinal: N.p.o. Renal: SHYAM in the setting of ischemic ATN. Hyperkalemia noted. Creatinine did improve. Maintain Cuevas for comfort. Infectious disease: Started on broad-spectrum antibiotics for septic shock. Hematologic: No significant issues. Endocrine: History of hypothyroidism. We will hold oral therapy at this time. Lines and tubes: Right IJ central line in place. Cuevas catheter in place. VTE prophylaxis: Hold for comfort measures only. CODE STATUS: DNR/DNI. Comfort measures only. Family at bedside: Son updated at bedside as per the above discussion. Disposition: Remain in ICU. Prognosis is very poor. Discussed with hospitalist and family extensively. I have personally spent 33 minutes of critical care time in the direct management of this patient. This is a life/limb threatening event. This includes time spent evaluating patient, direct bedside care, chart review, placing orders, interpretation of diagnostic studies, discussion with consultants, patient, and family members, as well as other required patient management activities. This time is exclusive of all separately billable procedures, and teaching time and separate from and in addition to any other critical care service time. Thank you for allowing us to participate in the care of this patient. History of Present Illness Reason for Consultation: Septic shock and acute hypercapnic respiratory failure Attending Physician: Jordan Ken History of Present Illness 81-year-old male with a past medical history of oxygen dependent COPD on 4 L of oxygen at baseline who presented to the ER due to altered mental status. He was found to be in hypertensive shock and respiratory failure. History is unobtainable from the family, but collateral history is obtained from the chart review, patient son and discussion with hospitalist service. He was found to be acidotic with severe renal failure and hyperkalemia. On presentation to the ICU he was essentially obtunded with respiratory rate in the 40s. Discussion with the family was held regarding the patient's poor prognosis and ultimately they decided to proceed with comfort measures only per the patient's wishes. It was noted that the patient had told the family that he did not want to be intubated or resuscitated. Patient had a central line placed in the ER in the right IJ and was on low-dose Levophed infusion. He was also on BiPAP in the ICU pulling minimal tidal volumes of 150 to 200 mL. Allergies Allergy/AdvReac Type Severity Reaction Status Date / Time amoxicillin [From Augmentin] Allergy Severe Verified 01/09/21 16:22 clavulanic acid Allergy Severe Verified 01/09/21 16:22 [From Augmentin] tetanus toxoid, adsorbed Allergy Intermediate INJECTION Unverified 01/09/21 16:22 SITE SWELLING Home Medications Medication Instructions Recorded Confirmed Type cholecalciferol (vitamin D3) 25 25 mcg PO QAM 01/09/21 09/16/21 History mcg (1,000 unit) tablet (Vitamin D3) simvastatin 80 mg tablet 40 mg PO HS 01/09/21 09/16/21 History tiotropium bromide 2.5 2 puff INHALATION DAILY PRN 01/09/21 09/16/21 History mcg/actuation mist for inhalation levothyroxine 112 mcg tablet 112 mcg PO DAILYBB #30 tab 01/11/21 09/16/21 Rx (Synthroid) albuterol sulfate 90 mcg/actuation 2 puff INHALATION Q6H PRN #18 g 08/28/21 09/16/21 Rx aerosol inhaler ipratropium 20 mcg-albuterol 100 See Rx Instructions .ROUTE 08/28/21 09/16/21 Rx mcg/actuation mist for inhalation .COMPLEX #12 milliliter (Combivent Respimat) budesonide-formoterol HFA 160 2 inh INHALATION BID #1 g 09/08/21 09/16/21 Rx mcg-4.5 mcg/actuation aerosol inhaler Patient History Medical History (Updated 09/16/21 @ 15:42 by Surjit Honeycutt MD) Acute and chronic respiratory failure with hypercapnia Carotid arterial disease Chronic respiratory failure with hypoxia COPD (chronic obstructive pulmonary disease) External hemorrhoid Goals of care, counseling/discussion Hypercholesteremia Hypertension Hypothyroidism Rectal bleeding Surgical History History of prostate surgery Status post carotid surgery left CEA Family History Family/Other Diabetes Breast cancer Hypertension Social History Smoking Status: Unknown if ever smoked Tobacco Type: Cigarettes packs per day: 0.5; Cigarettes Per Day: 10; Second Hand Exposure: Yes; Hx Alcohol Use: No Hx Substance Use: No Preferred Language: [place] Communication Ability: Effective Accessioner Required: No Beliefs That Will Affect Care: None marital status: Single Current Living Situation: Alone current occupational status: retired Feels Safe at Home: Yes Childhood Exposure to Second-Hand Smoke: Yes Dental Care, Regularly: No Physical Activity Frequency: Does not Exercise Assistive Devices: Walker Review of Systems Review of Systems: All systems reviewed & are unremarkable except as noted in HPI & below Physical Exam Physical Exam: Constitutional: Cachectic appearing male who appears to be in severe respiratory distress. Obtunded. Eyes: Pupils are equal round and reactive to light. Conjunctivae are normal. Anicteric sclera. Mucous membranes dry. Ears nose, mouth and throat: Mallampati class []. Normal posterior oropharynx. Uvula is midline. Neck: Trachea is midline. Visual inspection is normal. Respiratory: Tachypnea. Diminished lung sounds bilaterally. Prolonged phase of exhalation. Cardiovascular: Regular rate and rhythm. No murmurs. No edema. Right IJ catheter in place. Gastrointestinal: Normal bowel sounds, soft, nontender and nondistended. No hepatosplenomegaly noted. Musculoskeletal: No cyanosis. Patient is able to move all extremities. Skin: No rashes, warm dry and intact. Neurologic: Obtunded Psychiatric: Unable to assess Results & Data Results & Data ([facility]) Vital Signs (Past 12 Hours) Vital Signs Temp Pulse Pulse Resp BP Pulse Ox 09/16/21 15:13 79 40 H 96 09/16/21 14:30 36.2 C L 81 38 H 135/54 L 93 09/16/21 14:15 36.0 C L 39 H 130/50 L 94 09/16/21 14:03 32 H 94 09/16/21 14:00 35.8 C L 82 33 H 139/50 L 94 09/16/21 13:30 35.6 C L 80 33 H 131/60 95 09/16/21 13:15 35.2 C L 67 35 H 132/60 95 09/16/21 13:10 35.2 C L 75 37 H 131/52 L 94 09/16/21 13:05 35.1 C L 36 H 136/53 L 93 09/16/21 13:00 35.0 C L 37 H 139/51 L 93 09/16/21 12:55 35.0 C L 76 33 H 146/48 H 96 09/16/21 12:50 34.9 C L 74 26 H 136/52 L 96 09/16/21 12:45 34.8 C L 30 H 139/52 L 98 09/16/21 12:40 34.8 C L 35 H 145/43 H 98 09/16/21 12:35 34.8 C L 24 139/36 L 100 09/16/21 12:34 34.8 C L 24 142/43 H 100 09/16/21 12:05 34.7 C L 26 H 133/50 L 100 09/16/21 12:00 34.7 C L 75 35 H 123/55 L 99 09/16/21 11:55 34.7 C L 76 26 H 140/47 L 99 09/16/21 11:49 34.7 C L 78 24 127/54 L 100 09/16/21 11:47 74 22 100 09/16/21 11:00 34.8 C L 09/16/21 10:04 75 22 153/41 H Coding Level of Care Code Critical Care 1st 30-74 mins Diagnoses Septic shock A41.9; R65.21 Hyperkalemia E87.5 Encephalopathy G93.40 Rhabdomyolysis M62.82 Acute and chronic respiratory failure with hypercapnia J96.22 Goals of care, counseling/discussion Z71.89 Time Spent (min) 33
[2021-09-16] MEDS ORDERED: LORazepam 2 MG/4 ML VIAL ONE (15:52)
[2021-09-16] MEDS ORDERED: MoRPHine SULFATE 2 MG/ML CARP ONE (15:52)
[2021-09-16 16:32] VITALS: BP 91/43; PULSE 88; O2SAT 98
[2021-09-16] MEDS ORDERED: MoRPHine SULFATE 4 MG/ML 1 ML CARP\\VIAL IV PRN (16:49)
[2021-09-16] MEDS ORDERED: BUDESONIDE 0.5 MG/2 ML VIAL (PULMICORT) NEB SCH (19:00)
--- NOTE | 2021-09-16 20:30 | Discharge Summary ---
Date of Service September 16, 2021 Admission HPI Per Admitting Provider 81 YOM with past medical history of: Severe COPD on home oxygen, HTN, HLD, Hypothyroidism. Patient comes to the emergency room today via EMS secondary to being found on the ground at home this morning by family. Reportedly the patient has fallen or found on the ground over the past 3 days and assisted back to chair or bed. Today he was noted to be less responsive and EMS was called. He was noted to be hypotensive and hypoxic during transport. In the EMD the patient had routine labs drawn, blood culture, UA with culture, ABG, CXR, ECG, CT of head performed. The patient labs were noted for acidsois, elevated BUN and HOGSHEAD PACKER with resulting hyperkalemia to 7. He was also noted to have elevated WBC count in the 30s, was hypothermic with elevated PCT. His urine does have bacteria in it as well as Nit/Leuk, RBC, Blood, and hyaline casts. His CK level was also elevated at 3395. Patient was resuscitated with 0.9% saline x 1 liter and then transitioned to isotonic HCO3 drip for his hyperkalemia/rhabdo/acid osis. He was give Kayexalate as well as calcium gluconate for his hyperkalemia. A central line was placed and he was initiated on Levophed drip at 0.05mcg/kg/min which has maintained his MAPS >70. He was started on Vancomycin and Levaquin in the EMD which he received dose of each prior to admission. Hospitalist service was consulted for admission. Overall the patient is cachetic, elderly and frail, he has multiple areas of excoriation and bruising noted to his right side, he remains hypothermic despite warm blankets, gee hugger, and warming lights. Will recheck BMP and ionized calcium and VBG now to guide further therapy. He is in septic shock complicated by SHYAM/ATN, he is making urine at this time which is reassuring. He also has evidence of rhabdomyolysis with an elevated gap acidosis. His HCO3 is 28 and PH is 7.22. His gap is now down to 8, and his K is down to 4.3 following resuscitative efforts. He is encephalopathic with minimal response. Will admit to ICU for septic shock, SHYAM, Hypovolemia, acidosis and wean down pressures as able. Continue with ABX therapy and await culture results. I have spent 20 minutes discussing the case and the wishes of the patient and family for ongoing care. We discussed his current status and likely causes to include but not limited to- infection/septic shock/hypothermiakidney injury/COPD/hyperkalemia/acid base disturbances. We also reviewed his current therapies to address current threats to his life. Family (sone) decided with his dad's wishes and quality of life that he would not want to be intubated or placed on mechanical ventilation, if his heart were to stop or go into a lethal rhythm that he would not want to have CPR or electrical therapy. He would like to continue current level of care and if further organ failure or was imminent that he would like to make him comfort care at that time and stop further therapies. Patient COVID/FLU/and respiratory viral panel all: NEGATiVE TOD: 1655 - cause of septic shock, secondary cause of COPD acute on chronic respiratory failure Discharge Data Consultations 09/16/21 12:40 Consult Lead Applier Routine 09/16/21 13:30 ED Decision to Admit Stat Hospital Course (1) Septic shock: Septic shock secondary to urinary source with evidence of organ dysfunction - Continue with volume resuscitation to maintain MAPS >65, UO 0.5ml/kg/hr, - Continue with Levophed to keep MAPS >65- wean as able - Continue with Vancomycin, Aztreonam added, IV Flagyl unavailable - Await cultures - PCT 7.49- follow q72 or per contracting officer (2) ARF (acute renal failure): Multiple causes to include septic shock, hypovolemia, rhabdomyolysis - Renal ultrasound to assess for obstructive Pathology/renal stones - Urine electrolytes - Patient is not anuric at this time - Continue with isotonic bicarb drip- mild improvment with resuscitation - Continue to kaliureses as able by maintaining adequate UO - Support with IVF and vasopressors to maintain MAPS - Does have 4mm non-obstructing stones- follow (3) Metabolic acidosis: As above - Mixed Respiratory/Metabolic acidsosis - treat above (4) Hyperkalemia: Resoloving hopeful to continue - Continue with isotonic HCO3 infusion - As long as he remains making urine should continue to decline or stablize - Follow renal function - support acid base status as we are able (5) Rhabdomyolysis: CK 3395 with right sided tissue injury/pressure injury - IVF as above- continue with isotonic HCo3 at 250ml/hr - Follow renal function and acidosis (6) Encephalopathy: Metabolic/hypercapnic - Continue with treating reversible causes - BiPAP for hypercapnia - Follow- CT head without acute process - If reversible causes treated without improvement consider further imaging (7) Elevated troponin: Likely demand from shock and hypovolemia - Trend troponin - daily ECG (8) UTI (urinary tract infection): As above (9) Constipation: Large stool burden noted on KUB - Will need disimpaction and likely tap water enema to loosen (10) COPD (chronic obstructive pulmonary disease): Severe history on home O2 - CO2 increasing- BiPAP hopeful to reverse - Continue scheduled Combivent nebs - Pulmicort nebs BID - Spiriva if he awakes enough to use- unlikely at this time to be beneficial - Consider IV Steroid (11) Hypercholesteremia: Continue statin (12) Hypothyroidism: Change Synthroid to IV - 60 mcg while NPO (13) Acute and chronic respiratory failure with hypercapnia: (14) Acute respiratory failure with hypoxia and hypercapnia: Supervising Physician Co-Signing Physician Notes Attending Attestation: Pt had been seen/examined prior to his . Critical care plan had been d/w SHARI Loza. I agree w/ the scott components of his documentation. 81yo critically ill male found down at his home for uncertain length of time. [facility] arrival to [facility] he was hypotensive, hypothermic, altered, hypoxic, and having increased work of breathing. Presentation c/w acute/chronic hypoxic/hypercapnic respiratory failure, septic shock likely 2nd to UTI, rhabdomyolysis 2nd to fall & laying on ground, ARF, hyperkalemia. Despite pressors, IV fluids, IV antibiotics, treatment of his high K, and other supportive care his respiratory status continued to worsen. BIPAP was utilized but he continued to decline. Family opted for DNR/DNI status and comfort care. Shortly after initiating a comfort care pathway he passed peacefully in the ICU. Jordan Ken MD Coding Level of Care Code None Diagnoses Septic shock A41.9; R65.21 ARF (acute renal failure) N17.9 Metabolic acidosis E87.2 Hyperkalemia E87.5 Rhabdomyolysis M62.82 Encephalopathy G93.40 Elevated troponin R77.8 UTI (urinary tract infection) N39.0 Constipation K59.00 COPD (chronic obstructive pulmonary disease) J43.8 COPD type: emphysema Emphysema type: other Hypercholesteremia E78.00 Hypothyroidism E03.9 Hypothyroidism type: unspecified Acute and chronic respiratory failure with hypercapnia J96.22 Acute respiratory failure with hypoxia and hypercapnia J96.01; J96.02
[2021-09-16] MEDS ORDERED: HEPARIN SOD 5,000 UNIT/0.5 ML VIAL SQ SCH (21:00)
[2021-09-17] MEDS ORDERED: AZTREONAM 2,000 MG in DEXTROSE 5% 100 ML IV SCH (03:00)
[2021-09-17] MEDS ORDERED: LEVOTHYROXINE SODIUM IV SCH (09:00)
[2021-09-17] MEDS ORDERED: PANTOprazole 40 MG in SYRINGE 0 ML IV SCH (11:00)
[2021-09-17] MEDS ORDERED: VANCOMYCIN HCL 1 MG in DEXTROSE 5% 100 ML IV SCH (11:30)
--- NOTE | 2021-09-17 21:23 | Electrocardiogram Report ---
Test Reason : Blood Pressure : / mmHG Vent. Rate : 073 BPM Atrial Rate : 073 BPM P-R Int : 162 ms QRS Dur : 088 ms QT Int : 372 ms P-R-T Axes : 088 013 054 degrees QTc Int : 409 ms Normal sinus rhythm Anteroseptal infarct (cited on or before 06-DEC-2015) Nonspecific ST abnormality Abnormal ECG When compared with ECG of 09-JAN-2021 15:03, ST now depressed in Inferior leads Confirmed by Krishna Multani ([id number]) on 09/17/2021 9:23:04 PM Referred By: Confirmed By:Krishna Multani
[2021-09-18 10:46] LABS: Urea Nitrogen, Random Urine 431 mg/dL
== END 2021-09-16 18:10 | disposition expired | DRG 871 ==
LOC: ED 09:57 → 1E 12:39